=== PATIENT | female | born 1990 | race Caucasian/White ===

== ENCOUNTER → 2016-09-18 | Outpatient (CLI) | payer MEDICAID ==
[~2016-09-18] MED LIST: AMOX-358 PO; ASCO500T20 PO; CATHETER FLUSH 10 ML SYR IV PRN; CEPH-507 PO; DIPH25TA54 PO; DOCU100C37 PO; DOXY1TAB3 PO; ECHINACEA PO; FERR-74 PO; HYDR-3454 PO; HYDR-3729 PO; HYDR-3812 PO; IBUP-1773 PO; IBUP200C PO; IOHEXOL 350 MG/ML 100 ML (OMNIPAQUE 350) VIAL IV ONE; MULT-895 PO; NS 100 ML (IVPB) BAG IV ONE; OMEP40CA36 PO; ONDA8TAB9 PO; OXYC-197 PO; PENT100C5 PO; PHEN-639 PO; PNV1TABL9 PO; [UNRECOGNIZED DRUG - CODE] PO; omeprazole
--- OUTSIDE RECORDS SUMMARY | 2016-09-18 18:23 | XMS REPORT ---
Author Author ALLYN MCDANIELS Organization [employer] Address Unknown Phone Unavailable Care Team Providers Care Server Software Engineer Name Role Phone ALLYN MCDANIELS CP Unavailable Allergies No Known Allergies Problems Problem Type Condition Code Onset Dates Condition Status Problem General counseling for initiation of other contraceptive measures V25.02 Active Problem Screening for malignant neoplasm of the cervix V76.2 Active Problem Infectious mononucleosis 075 Active Problem Contact dermatitis and other eczema, due to unspecified cause 692.9 Active Problem Unspecified viral infection, in conditions classified elsewhere and of unspecified site 079.99 Active Problem Psychosexual dysfunction, unspecified 302.70 Active Problem Other diseases of nasal cavity and sinuses 478.19 Active Problem Acute suppurative otitis media without spontaneous rupture of eardrum 382.00 Active Problem Vulvodynia, 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
--- NOTE | 2016-09-18 19:50 | Diagnostic Imaging Report ---
PROCEDURE: CT abdomen and pelvis with contrast. TECHNIQUE: Multiple contiguous axial images were obtained through the abdomen and pelvis after administration of intravenous contrast. INDICATION: 26-year-old female presents with right-sided back pain, right anterior abdominal pain for 1 day, diarrhea, history of kidney stones. COMPARISON: 08/17/15 FINDINGS: Lung bases are clear. Cardiac contour is normal. Liver shows uniform attenuation. There is no intraparenchymal mass or ductal dilatation. Gallbladder appears to be surgically absent. Spleen and GE junction are normal. The stomach and duodenal sweep are unremarkable. Pancreas shows sharp margins. Adrenals are normal. Kidneys appear normal in size, position and contour with symmetrical perfusion and excretion of contrast. Both ureters are seen through their course. The underfilled bladder is grossly normal. The nonopacified loops of small bowel are grossly normal. There are, however, prominent mesenteric nodes extending to the mesenteric root. Appendix is normal. Large bowel contains fecal material and gas. The descending colon is mostly decompressed. There is a right ovarian cyst seen. Visualized vasculature shows normal caliber of the aorta, iliac and femoral arteries. There is normal origin of the visceral arteries. There is no inguinal adenopathy. Bone windows show no gross abnormalities. IMPRESSION: Mesenteric lymphadenopathy, etiology of which is unclear. This may represent an infectious process; however, a neoplastic process cannot be completely excluded. Short-term followup with clinical correlation is recommended. Additional nonemergent findings as described above. Dictated by: Dictated on workstation # [id number]
== END ==
LOC: RAD 18:18
PROVIDERS: ATTEND Nurse Practitioner Family
DX: R59.0 Localized enlarged lymph nodes (principal); R10.84 Generalized abdominal pain
CPT/HCPCS: 74177

== ENCOUNTER 2016-12-24 12:32 | Outpatient (CLI) | payer MEDICAID ==
[~2016-12-24] VITALS: Ht 156.2 cm; Wt 90.7 kg
[2016-12-24 12:30] VITALS: BP 113/58
[~2016-12-24 12:32] MED LIST changes: -CATHETER FLUSH 10 ML SYR IV PRN; -IOHEXOL 350 MG/ML 100 ML (OMNIPAQUE 350) VIAL IV ONE; -NS 100 ML (IVPB) BAG IV ONE
[2016-12-24] MEDS ORDERED: PROMETHAZINE INJ 25 MG/ML (PHENERGAN) AMP IVP NR (12:45)
[2016-12-24] MEDS ORDERED: NS IV 1000 ML 1,000 ML IV ONE (12:45)
[2016-12-24] MEDS ORDERED: CATHETER FLUSH 10 ML SYR IV PRN (13:00)
[2016-12-24 13:46] LABS: ALANINE AMINOTRANSFERASE 21 U/L (0-55); ALBUMIN 4.3 G/DL (3.2-4.5); ANION GAP 11 MMOL/L (5-14); ASPARTATE AMINO TRANSFERASE 16 U/L (5-34); BILIRUBIN,TOTAL 0.4 MG/DL (0.1-1.0); BLOOD UREA NITROGEN 7 MG/DL (7-18); BUN/CREATININE RATIO 11; CALCIUM 9.2 MG/DL (8.5-10.1); CARBON DIOXIDE 19 MMOL/L (21-32); CHLORIDE 108 MMOL/L (98-107); CREATININE SERUM 0.64 MG/DL (0.60-1.30); GFR ESTIMATED > 60; GLUCOSE 83 MG/DL (70-105); POTASSIUM 3.6 MMOL/L (3.6-5.0); SODIUM 138 MMOL/L (135-145); TOTAL PROTEIN 7.6 G/DL (6.4-8.2)
[2016-12-24] MEDS ORDERED: DOXY1TAB3 PO (15:07)
[2016-12-24] MEDS ORDERED: PROC10TA PO (15:09)
[2016-12-24] MEDS ORDERED: CALC500T7 PO (15:10)
[2016-12-24] MEDS ORDERED: PROCHLORPERAZINE 10 MG/2ML INJ (COMPAZINE) IV NR (15:15)
[2016-12-24] MEDS ORDERED: D5 LR IV SOLUTION 1,000 ML IV ONE (15:15)
--- NOTE | 2016-12-25 13:03 | Physician Query-Final Dx ---
TY NOE 12/25/16 1303: Clinic Account Progress/Dx Physician Query: Please give diagnosis Date of Service Dec 24, 2016 at 12:32 JORGE LARSON DO 12/26/16 1449: Clinic Account Progress/Dx DIAGNOSIS: Diagnosis Dr. Napoles cared for this patient TY NOE Dec 25, 2016 13:03 JORGE LARSON DO Dec 26, 2016 14:49
--- NOTE | 2016-12-29 13:59 | Physician Query-Final Dx ---
TY NOE 12/29/16 1359: Clinic Account Progress/Dx Physician Query: Please give diagnosis Date of Service Dec 24, 2016 at 12:32 JEREMY GUTIÉRREZ MD 12/29/16 1421: Clinic Account Progress/Dx DIAGNOSIS: Diagnosis Nausea and vomiting in TY NOE Dec 29, 2016 13:59 JEREMY GUTIÉRREZ MD Dec 29, 2016 14:21
== END 2016-12-24 18:30 | disposition home or self-care (01) ==
LOC: WSo 12:32 → LDRP 12:33 → WSo 18:30
PROVIDERS: ATTEND Obstetrics & Gynecology
DX: O21.9 Vomiting of pregnancy, unspecified (principal); Z3A.08 8 weeks gestation of pregnancy
CPT/HCPCS: 36415; 80053; 99212

== ENCOUNTER → 2017-04-02 | Outpatient (CLI) | payer MEDICAID ==
[~2017-04-02] MED LIST changes: +CALC500T7 PO; +PROC10TA PO
--- NOTE | 2017-04-02 13:42 | Diagnostic Imaging Report ---
INDICATION: survey. TECHNIQUE: Multiple real-time grayscale images were obtained over the gravid uterus. COMPARISON: There are no prior studies available for comparison. FINDINGS: There is a single live fetus in cephalic presentation. heart motion was noted and a rate of 142 BPM was recorded. There were no abnormalities identified. However the four-chamber heart view and the spine were not optimally visualized. I would recommend that a short-term (4-6 week) followup exam be performed for further evaluation. The growth parameters are fairly uniform. The placenta is anterior and there is no previa. The amniotic fluid volume is within normal limits. The cervix was not well visualized and consequently the length of the cervix was not obtained. IMPRESSION: 1. There is single live fetus at approximately 22 weeks 5 days gestation +/-2 weeks. The EDC is August 01, 2017. 2. There were no abnormalities identified but the four-chamber heart view and the spine were not optimally imaged. Recommendations as above. 3. The growth parameters are fairly uniform. Biometrical measurements are as follows: Biparietal 5.5 cm, age 23 weeks 0 days. Head circumference 20.41 cm, age 22 weeks 4 days. Abdominal circumference 19.11 cm, age 23 weeks 6 days. Femur length 3.58 cm, age 21 weeks 3 days. Sonographic estimate age: 22 weeks 5 days. Sonographic estimated date of delivery: 08/01/2017. Estimated Weight: 529 gm (+/- 77 gm). LMP percentile: 44%. heart rate: 142 beats per minute. number: 1 of 1. Dictated by: Dictated on workstation # [id number]
== END ==
LOC: RAD 11:33
PROVIDERS: ATTEND Obstetrics & Gynecology
DX: Z36 Encounter for antenatal screening of mother (principal); Z3A.22 22 weeks gestation of pregnancy
CPT/HCPCS: 76805

== ENCOUNTER 2017-04-14 17:06 | Outpatient (CLI) | payer MEDICAID ==
[~2017-04-14] VITALS: Ht 156.2 cm; Wt 95.7 kg
[2017-04-14 17:20] VITALS: BP 116/62
[2017-04-14 17:29] LABS: BILIRUBIN,URINE NEGATIVE (NEGATIVE); KETONES,URINE NEGATIVE (NEGATIVE); LEUKOCYTE ESTERASE ,URINE NEGATIVE (NEGATIVE); NITRITE,URINE NEGATIVE (NEGATIVE); PH,URINE 6.5 (5-9); PROTEIN,URINE NEGATIVE (NEGATIVE); UROBILINOGEN,URINE NORMAL (NORMAL)
[2017-04-14 17:36] LABS: WBC,URINE 0-2 /HPF
[2017-04-14 18:00] VITALS: BP 107/58
[2017-04-14 18:43] LABS: BASOPHILS % (AUTO) 0 % (0-10); EOSINOPHILS # (AUTO) 0.1 10^3/uL (0.0-0.3); EOSINOPHILS % (AUTO) 1 % (0-10); LYMPHOCYTES # (AUTO) 1.5 X 10^3 (1.0-4.0); LYMPHOCYTES % (AUTO) 19 % (12-44); MEAN CORPUSCULAR HEMOGLOBIN 30 PG (25-34); MEAN CORPUSCULAR HGB CONC 34 G/DL (32-36); MEAN CORPUSCULAR VOLUME 90 FL (80-99); MEAN PLATELET VOLUME 10.9 FL (7.4-10.4); MONOCYTES # (AUTO) 0.6 X 10^3 (0.0-1.0); MONOCYTES % (AUTO) 7 % (0-12); NEUTROPHILS # (AUTO) 5.6 X 10^3 (1.8-7.8); NEUTROPHILS % (AUTO) 73 % (42-75); PLATELET COUNT 176 10^3/uL (130-400); RED BLOOD COUNT 3.85 10^6/uL (4.35-5.85); RED CELL DISTRIBUTION WIDTH 13.8 % (10.0-14.5); WHITE BLOOD COUNT 7.7 10^3/uL (4.3-11.0)
[2017-04-14 19:04] LABS: ALANINE AMINOTRANSFERASE 10 U/L (0-55); ALBUMIN 3.3 GM/DL (3.2-4.5); ANION GAP 11 MMOL/L (5-14); ASPARTATE AMINO TRANSFERASE 11 U/L (5-34); BILIRUBIN,TOTAL 0.3 MG/DL (0.1-1.0); BLOOD UREA NITROGEN 5 MG/DL (7-18); BUN/CREATININE RATIO 9; CALCIUM 8.4 MG/DL (8.5-10.1); CARBON DIOXIDE 16 MMOL/L (21-32); CHLORIDE 109 MMOL/L (98-107); CREATININE SERUM 0.54 MG/DL (0.60-1.30); GFR ESTIMATED > 60; GLUCOSE 85 MG/DL (70-105); POTASSIUM 3.5 MMOL/L (3.6-5.0); SODIUM 136 MMOL/L (135-145); TOTAL PROTEIN 6.5 GM/DL (6.4-8.2)
[2017-04-14] MEDS ORDERED: NS IV 1000 ML 1,000 ML IV ONE (19:15)
[2017-04-14] MEDS ORDERED: LOPERAMIDE 2 MG (IMODIUM) CAP PO PRN (19:15)
[2017-04-14 19:40] VITALS: BP 114/55
[2017-04-14 22:40] VITALS: BP 114/76
--- NOTE | 2017-04-15 15:05 | Physician Query-Final Dx ---
ADAM FERRARO 04/15/17 3:05pm: Clinic Account Progress/Dx Physician Query: Please give diagnosis Date of Service Apr 14, 2017 at 17:06 JORGE LARSON DO 05/01/17 6:25pm: Clinic Account Progress/Dx DIAGNOSIS: Diagnosis Nausea, diarrhea in second trimester ADAM FERRARO Apr 15, 2017 3:05 pm JORGE LARSON DO May 01, 2017 6:25 pm
== END 2017-04-14 22:45 | disposition home or self-care (01) ==
LOC: LDRP 17:06 → WSo 17:06
PROVIDERS: ATTEND Obstetrics & Gynecology
DX: O99.89 Other specified diseases and conditions complicating pregnancy, childbirth and the puerperium (principal); R11.0 Nausea; R19.7 Diarrhea, unspecified; Z3A.24 24 weeks gestation of pregnancy
CPT/HCPCS: 36415; 80053; 81000; 85025; 86850; 86900; 86901; 87088; 96360; 96361; 99213

== ENCOUNTER 2017-05-26 22:50 | Outpatient (CLI) | payer MEDICAID ==
[~2017-05-26] VITALS: Ht 156.2 cm; Wt 98.0 kg
[2017-05-26 23:28] LABS: BILIRUBIN,URINE NEGATIVE (NEGATIVE); KETONES,URINE NEGATIVE (NEGATIVE); LEUKOCYTE ESTERASE ,URINE NEGATIVE (NEGATIVE); NITRITE,URINE NEGATIVE (NEGATIVE); PH,URINE 6.5 (5-9); PROTEIN,URINE NEGATIVE (NEGATIVE); UROBILINOGEN,URINE NORMAL (NORMAL)
[2017-05-26 23:42] VITALS: BP 123/56
--- NOTE | 2017-05-27 07:25 | Physician Query-Final Dx ---
ADAM FERRARO 05/27/17 0725: Clinic Account Progress/Dx Physician Query: Please give diagnosis Date of Service May 26, 2017 at 22:50 JORGE LARSON DO 06/17/17 1228: Clinic Account Progress/Dx DIAGNOSIS: Diagnosis contractions third trimester 30 weeks ADAM FERRARO May 27, 2017 07:25 JORGE LARSON DO Jun 17, 2017 12:28
== END 2017-05-27 00:05 | disposition home or self-care (01) ==
LOC: WSo 22:50 → LDRP 22:50 → WSo 05-27 00:05
PROVIDERS: ATTEND Obstetrics & Gynecology
DX: O47.03 False labor before 37 completed weeks of gestation, third trimester (principal); Z3A.30 30 weeks gestation of pregnancy
CPT/HCPCS: 81000; 99213

== ENCOUNTER 2017-07-06 14:55 | Outpatient (CLI) | payer MEDICAID ==
[~2017-07-06] VITALS: Ht 154.9 cm; Wt 98.5 kg
[2017-07-06 14:55] VITALS: BP 135/68
[2017-07-06 15:41] LABS: BILIRUBIN,URINE NEGATIVE (NEGATIVE); KETONES,URINE 4+ (NEGATIVE); LEUKOCYTE ESTERASE ,URINE NEGATIVE (NEGATIVE); NITRITE,URINE NEGATIVE (NEGATIVE); PH,URINE 5 (5-9); PROTEIN,URINE 2+ (NEGATIVE); UROBILINOGEN,URINE NORMAL (NORMAL)
[2017-07-06] MEDS ORDERED: OMEP40CA36 PO (15:41)
[2017-07-06] MEDS ORDERED: PROM25SU44 RC (15:41)
[2017-07-06] MEDS ORDERED: D5 LR IV SOLUTION 1,000 ML IV SCH (16:00)
[2017-07-06] MEDS ORDERED: CATHETER FLUSH 10 ML SYR IV PRN (16:00)
[2017-07-06] MEDS ORDERED: ONDANSETRON 4 MG/2 ML (SDV) Z0FRAN IVP PRN (16:00)
[2017-07-06 16:03] LABS: WBC,URINE RARE /HPF
[2017-07-06 16:04] LABS: SQUAMOUS EPITHELIAL CELL,UR >50 /HPF
[2017-07-06 16:14] LABS: BASOPHILS % (AUTO) 0 % (0-10); EOSINOPHILS % (AUTO) 0 % (0-10); LYMPHOCYTES # (AUTO) 0.9 X 10^3 (1.0-4.0); LYMPHOCYTES % (AUTO) 5 % (12-44); MEAN CORPUSCULAR HEMOGLOBIN 28 PG (25-34); MEAN CORPUSCULAR HGB CONC 34 G/DL (32-36); MEAN CORPUSCULAR VOLUME 84 FL (80-99); MEAN PLATELET VOLUME 10.6 FL (7.4-10.4); MONOCYTES # (AUTO) 0.9 X 10^3 (0.0-1.0); MONOCYTES % (AUTO) 5 % (0-12); NEUTROPHILS # (AUTO) 14.7 X 10^3 (1.8-7.8); NEUTROPHILS % (AUTO) 89 % (42-75); PLATELET COUNT 226 10^3/uL (130-400); RED BLOOD COUNT 4.39 10^6/uL (4.35-5.85); WHITE BLOOD COUNT 16.5 10^3/uL (4.3-11.0)
[2017-07-06] MEDS ORDERED: LOPERAMIDE 2 MG (IMODIUM) CAP PO PRN (16:15)
[2017-07-06 16:34] LABS: ALANINE AMINOTRANSFERASE 14 U/L (0-55); ALBUMIN 3.5 GM/DL (3.2-4.5); ANION GAP 12 MMOL/L (5-14); ASPARTATE AMINO TRANSFERASE 18 U/L (5-34); BILIRUBIN,TOTAL 0.4 MG/DL (0.1-1.0); BLOOD UREA NITROGEN 6 MG/DL (7-18); BUN/CREATININE RATIO 11; CALCIUM 8.6 MG/DL (8.5-10.1); CARBON DIOXIDE 16 MMOL/L (21-32); CHLORIDE 109 MMOL/L (98-107); CREATININE SERUM 0.54 MG/DL (0.60-1.30); GFR ESTIMATED > 60; GLUCOSE 84 MG/DL (70-105); POTASSIUM 3.5 MMOL/L (3.6-5.0); SODIUM 137 MMOL/L (135-145); TOTAL PROTEIN 6.9 GM/DL (6.4-8.2)
[2017-07-06 16:49] LABS: BAND NEUTROPHILS 0 %; BASOPHILS % (MANUAL) 0 %; EOSINOPHILS % (MANUAL) 0 %; LYMPHOCYTES % (MANUAL) 5 %; NEUTROPHILS % (MANUAL) 93 %
[2017-07-06 19:46] VITALS: BP 130/66
--- NOTE | 2017-07-07 13:29 | Physician Query-Final Dx ---
TY NOE 07/07/17 1329: Clinic Account Progress/Dx Physician Query: Please give diagnosis Date of Service Jul 06, 2017 at 14:55 ALLYN BORDEN DO 07/08/17 0940: Clinic Account Progress/Dx DIAGNOSIS: Diagnosis 36 week IUP Acute gastroenteritis TY NOE Jul 07, 2017 13:29 ALLYN BORDEN DO Jul 08, 2017 09:40
== END 2017-07-06 21:05 | disposition home or self-care (01) ==
LOC: WSo 14:55 → LDRP 14:55 → WSo 15:05
PROVIDERS: ATTEND Obstetrics & Gynecology
DX: O99.613 Diseases of the digestive system complicating pregnancy, third trimester (principal); K52.9 Noninfective gastroenteritis and colitis, unspecified; Z3A.36 36 weeks gestation of pregnancy
CPT/HCPCS: 36415; 80053; 81000; 85007; 85027; 96361; 96374; 99213

== ENCOUNTER 2017-07-15 18:55 | Outpatient (CLI) | payer MEDICAID ==
[~2017-07-15] VITALS: Ht 154.9 cm; Wt 102.2 kg
[~2017-07-15 18:55] MED LIST changes: +ACHD5005 PO; -HYDR-3812 PO; +PROM25SU44 RC
[2017-07-15 20:00] VITALS: BP 135/64
[2017-07-15 20:49] LABS: BASOPHILS % (AUTO) 0 % (0-10); EOSINOPHILS # (AUTO) 0.1 10^3/uL (0.0-0.3); EOSINOPHILS % (AUTO) 1 % (0-10); LYMPHOCYTES # (AUTO) 1.9 X 10^3 (1.0-4.0); LYMPHOCYTES % (AUTO) 19 % (12-44); MEAN CORPUSCULAR HEMOGLOBIN 28 PG (25-34); MEAN CORPUSCULAR HGB CONC 33 G/DL (32-36); MEAN CORPUSCULAR VOLUME 85 FL (80-99); MEAN PLATELET VOLUME 10.7 FL (7.4-10.4); MONOCYTES # (AUTO) 0.8 X 10^3 (0.0-1.0); MONOCYTES % (AUTO) 8 % (0-12); NEUTROPHILS # (AUTO) 7.2 X 10^3 (1.8-7.8); NEUTROPHILS % (AUTO) 73 % (42-75); PLATELET COUNT 228 10^3/uL (130-400); RED BLOOD COUNT 4.29 10^6/uL (4.35-5.85); RED CELL DISTRIBUTION WIDTH 15.3 % (10.0-14.5); WHITE BLOOD COUNT 9.9 10^3/uL (4.3-11.0)
[2017-07-15 20:54] LABS: FERN TEST AMNIOTIC FLUID NEGATIVE (NEGATIVE)
[2017-07-15] MEDS ORDERED: D5 LR IV SOLUTION 1,000 ML IV ONE (21:08)
[2017-07-15] MEDS: D5 LR IV SOLUTION 1,000 ML IV SCH ×2 (21:30→22:35)
--- NOTE | 2017-07-16 12:10 | Physician Query-Final Dx ---
TY NOE 07/16/17 1210: Clinic Account Progress/Dx Physician Query: Please give diagnosis Date of Service Jul 15, 2017 at 18:55 ESTHER PAT MD 07/16/17 1723: Clinic Account Progress/Dx DIAGNOSIS: Diagnosis threatened labor TY NOE Jul 16, 2017 12:10 ESTHER PAT MD Jul 16, 2017 17:23
== END 2017-07-15 23:50 | disposition home or self-care (01) ==
LOC: WSo 18:55 → LDRP 18:55 → WSo 23:50
PROVIDERS: ATTEND Obstetrics & Gynecology
DX: O47.1 False labor at or after 37 completed weeks of gestation (principal); Z3A.37 37 weeks gestation of pregnancy
CPT/HCPCS: 36415; 85025; 89060; 96360; 96361; 99214

== ENCOUNTER 2017-07-18 19:23 | Outpatient (CLI) | payer MEDICAID ==
[~2017-07-18] VITALS: Ht 156.2 cm; Wt 101.7 kg
[2017-07-18 19:45] VITALS: BP 127/62
[2017-07-18 20:50] VITALS: BP 120/55
--- NOTE | 2017-07-23 15:29 | Physician Query-Final Dx ---
ADAM FERRARO 07/23/17 1529: Clinic Account Progress/Dx Physician Query: Please give diagnosis Date of Service Jul 18, 2017 at 19:23 ESTHER PAT MD 07/24/17 1217: Clinic Account Progress/Dx DIAGNOSIS: Diagnosis false labor ADAM FERRARO Jul 23, 2017 15:29 ESTHER PAT MD Jul 24, 2017 12:17
--- NOTE | 2017-07-23 15:32 | Physician Query-Final Dx ---
ADAM FERRARO 07/23/17 1532: Clinic Account Progress/Dx Physician Query: Please give diagnosis Date of Service Jul 18, 2017 at 19:23 ESTHER PAT MD 07/24/17 1218: Clinic Account Progress/Dx DIAGNOSIS: Diagnosis false labor ADAM FERRARO Jul 23, 2017 15:32 ESTHER PAT MD Jul 24, 2017 12:18
== END 2017-07-18 21:05 | disposition home or self-care (01) ==
LOC: WSo 19:23 → LDRP 19:25 → WSo 21:05
PROVIDERS: ATTEND Obstetrics & Gynecology
DX: O47.1 False labor at or after 37 completed weeks of gestation (principal); Z3A.38 38 weeks gestation of pregnancy
CPT/HCPCS: 99213

== ENCOUNTER 2017-07-23 21:45 | Outpatient (CLI) | payer MEDICAID ==
[~2017-07-23] VITALS: Ht 156.2 cm; Wt 101.7 kg
[2017-07-23 22:29] VITALS: BP 122/58
--- NOTE | 2017-07-24 07:22 | Physician Query-Final Dx ---
ADAM FERRARO 07/24/17 0722: Clinic Account Progress/Dx Physician Query: Please give diagnosis Date of Service Jul 23, 2017 at 21:45 ALLYN BORDEN DO 07/24/17 0851: Clinic Account Progress/Dx DIAGNOSIS: Diagnosis 37 week IUP Uterine contraction ADAM FERRARO Jul 24, 2017 07:22 ALLYN BORDEN DO Jul 24, 2017 08:51
== END 2017-07-23 23:37 ==
LOC: LDRP 21:45 → WSo 21:45 → LDRP 21:50 → WSo 23:37
PROVIDERS: ATTEND Obstetrics & Gynecology
DX: O47.1 False labor at or after 37 completed weeks of gestation (principal); Z3A.37 37 weeks gestation of pregnancy
CPT/HCPCS: 99213

== ENCOUNTER 2017-07-26 23:45 | Outpatient (CLI) | payer MEDICAID ==
[~2017-07-26] VITALS: Ht 156.2 cm; Wt 102.1 kg
[~2017-07-26 23:45] MED LIST changes: -FERR-74 PO; +FERR325T18 PO
[2017-07-27 00:06] LABS: BILIRUBIN,URINE NEGATIVE (NEGATIVE); CLARITY,URINE CLEAR; COLOR,URINE YELLOW; GLUCOSE, URINE (UA) NEGATIVE (NEGATIVE); KETONES,URINE NEGATIVE (NEGATIVE); LEUKOCYTE ESTERASE ,URINE 1+ (NEGATIVE); NITRITE,URINE NEGATIVE (NEGATIVE); PH,URINE 6.5 (5-9); PROTEIN,URINE NEGATIVE (NEGATIVE); UROBILINOGEN,URINE NORMAL (NORMAL)
[2017-07-27 00:14] LABS: BACTERIA,URINE TRACE /HPF; WBC,URINE RARE /HPF
[2017-07-27 00:30] VITALS: BP 125/58
--- NOTE | 2017-07-27 09:26 | Physician Query-Final Dx ---
ADAM FERRARO 07/27/17 0926: Clinic Account Progress/Dx Physician Query: Please give diagnosis Date of Service Jul 26, 2017 at 23:45 JORGE LARSON DO 07/29/17 1436: Clinic Account Progress/Dx DIAGNOSIS: Diagnosis threatened labor at term GBS + ADAM FERRARO Jul 27, 2017 09:26 JORGE LARSON DO Jul 29, 2017 14:36
== END 2017-07-27 01:25 | disposition home or self-care (01) ==
LOC: LDRP 23:45 → WSo 23:45
PROVIDERS: ATTEND Obstetrics & Gynecology
DX: O47.1 False labor at or after 37 completed weeks of gestation (principal); O98.813 Other maternal infectious and parasitic diseases complicating pregnancy, third trimester; Z3A.39 39 weeks gestation of pregnancy
CPT/HCPCS: 81000; 99213

== ENCOUNTER 2017-07-27 06:27 | Inpatient (IN) | payer MEDICAID ==
[~2017-07-27] VITALS: Ht 156.2 cm; Wt 102.1 kg
[2017-07-27] VITALS (66 sets, daily range): BP systolic 72–145; BP diastolic 50–73
[2017-07-27] MEDS ORDERED: D5 LR IV SOLUTION 1,000 ML IV SCH (06:35)
[2017-07-27] MEDS ORDERED: MINERAL OIL CONCENTRATE 99.9% 15 ML UDC TOP PRN (06:45)
[2017-07-27 07:11] LABS: BILIRUBIN,URINE NEGATIVE (NEGATIVE); CLARITY,URINE CLEAR; COLOR,URINE YELLOW; GLUCOSE, URINE (UA) NEGATIVE (NEGATIVE); KETONES,URINE 3+ (NEGATIVE); LEUKOCYTE ESTERASE ,URINE 1+ (NEGATIVE); NITRITE,URINE NEGATIVE (NEGATIVE); PH,URINE 6 (5-9); PROTEIN,URINE NEGATIVE (NEGATIVE); UROBILINOGEN,URINE NORMAL (NORMAL)
[2017-07-27 07:22] LABS: BACTERIA,URINE NEGATIVE /HPF; RBC,URINE RARE /HPF; WBC,URINE 0-2 /HPF
[2017-07-27] MEDS ORDERED: SUFENTA 0.6MCG/ML BUPIVA 0.125 100 ML ONE ×2 (08:12→08:45)
[2017-07-27] MEDS ORDERED: BUPIVACAINE 0.25% 30 ML (SENSORCAINE) VIAL ONE (08:45)
[2017-07-27] MEDS ORDERED: fentaNYL INJECTION 100 MCG/2 ML AMP ONE (08:45)
[2017-07-27] MEDS ORDERED: LIDOCAINE PF 2% 5 ML (XYLOCAINE) VIAL ONE (08:45)
[2017-07-27 08:49] LABS: HEMOGLOBIN 11.1 G/DL (11.5-16.0); LYMPHOCYTES % (AUTO) 12 % (12-44); MEAN CORPUSCULAR HEMOGLOBIN 27 PG (25-34); MEAN PLATELET VOLUME 9.5 FL (7.4-10.4); NEUTROPHILS % (AUTO) 81 % (42-75); PLATELET COUNT 226 10^3/uL (130-400); RED BLOOD COUNT 4.15 10^6/uL (4.35-5.85); RED CELL DISTRIBUTION WIDTH 15.1 % (10.0-14.5); WHITE BLOOD COUNT 12.6 10^3/uL (4.3-11.0)
[2017-07-27 08:50] LABS: BASOPHILS % (AUTO) 0 % (0-10); EOSINOPHILS % (AUTO) 0 % (0-10); LYMPHOCYTES # (AUTO) 1.5 X 10^3 (1.0-4.0); MONOCYTES # (AUTO) 0.8 X 10^3 (0.0-1.0); MONOCYTES % (AUTO) 7 % (0-12); NEUTROPHILS # (AUTO) 10.3 X 10^3 (1.8-7.8)
[2017-07-27] MEDS ORDERED: ONDANSETRON 4 MG/2 ML (SDV) Z0FRAN ONE (09:52)
[2017-07-27 10:29] LABS: HEMATOCRIT 37 % (35-52); MEAN CORPUSCULAR HGB CONC 30 G/DL (32-36); MEAN CORPUSCULAR VOLUME 89 FL (80-99)
[2017-07-27] MEDS ORDERED: CATHETER FLUSH 10 ML SYR IV SCH ×2 (14:00→22:00)
[2017-07-27] MEDS ORDERED: LACTATED RINGERS 1,000 ML IV ONE (14:11)
[2017-07-27] MEDS ORDERED: ONDANSETRON 4 MG/2 ML (SDV) Z0FRAN IV PRN (14:15)
[2017-07-27] MEDS ORDERED: diphenhydrAMINE 50 MG/ML INJ (BENADRYL) IV PRN (14:15)
[2017-07-27] MEDS ORDERED: EPIDURAL (SUFENTA 0.6MCG/ML BUPIVA 0.125%) 100 ML BAG EPI SCH (14:15)
[2017-07-27] MEDS ORDERED: NALOXONE 0.4 MG/ML 1 ML (NARCAN) VIAL IV PRN (14:15)
[2017-07-27] MEDS ORDERED: CATHETER FLUSH 10 ML SYR IV PRN (14:15)
--- OUTSIDE RECORDS SUMMARY | 2017-07-27 14:37 | XMS REPORT ---
Author Author ALLYN MCDANIELS Organization [employer] Address Unknown Phone Unavailable Care Team Providers Care Chief Engineering Division Name Role Phone ALLYN MCDANIELS CP Unavailable [...] System Code Date SINGLE IMMUNIZATION ADMIN CPT-4 06953 May 02, 2016 FLUARIX QUAD P-FREE 3 AND UP .50 2015 CPT-4 40094 May 02, 2016 Results No Known Results Immunizations Vaccine Administration Date FLUARIX QUAD P-FREE 3 AND UP .50 2015May 02, 2016 Summary Purpose [employer] Submission
--- OUTSIDE RECORDS SUMMARY | 2017-07-27 14:37 | XMS REPORT ---
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 Active 754632809 Problem Screening for malignant neoplasm of the cervix V76.2 Active 136724934 Problem Unspecified contraceptive management V25.9 Active 985824002 Problem General counseling for initiation of other contraceptive measures V25.02 Active 075868619420282 Problem Contact dermatitis and other eczema, due to unspecified cause 692.9 Active 58919551 Problem Enlarged tonsils J35.1 Active 689185236 Problem Infectious mononucleosis 075 Active 256738298 Problem Other diseases of nasal cavity and sinuses 478.19 Active 565251388 Problem Acute suppurative otitis media without spontaneous rupture of eardrum 382.00 Active 64923186 Problem Unspecified viral infection, in conditions classified elsewhere and of unspecified site 079.99 Active 71110334 Problem Psychosexual dysfunction, unspecified 302.70 Active 412094704 ALLERGIES Substance Reaction Event Type Date Status Iodine rash Drug Allergy Aug, Active SOCIAL HISTORY Never Assessed PLAN OF CARE Activity Details Follow Up prn Reason: VITAL SIGNS Height 60.75 in 2016-09-16 Weight 206.6 lbs 2016-09-16 Temperature 98.2 degrees Fahrenheit 2016-09-16 Heart Rate 88 bpm 2016-09-16 Respiratory Rate 20 2016-09-16 BMI 39.35 kg/m2 2016-09-16 Blood pressure systolic 134 mmHg 2016-09-16 Blood pressure diastolic 84 mmHg 2016-09-16 MEDICATIONS No Known Medications RESULTS Name Result Date Reference Range INFLUENZA A & B (IN HOUSE) 2016-09-16 INFLUENZA A negative INFLUENZA B negative Control + Lot # [id number] Exp date 2017 PROCEDURES Procedure Date Ordered Result Body Site INFLUENZA ASSAY W/OPTIC Sep 16, 2016 IMMUNIZATIONS No Known Immunizations MEDICAL (GENERAL) HISTORY Type Description Date Medical History due Aug 01, 2017 Surgical History abcess on buttocks due to childbirth 09/04 Surgical History EGD--stones in duct 10/02 Surgical History cholecystectomy 10/02
--- OUTSIDE RECORDS SUMMARY | 2017-07-27 14:37 | XMS REPORT ---
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.70 Active 076511862 Problem Screening for malignant neoplasm of the cervix V76.2 Active 404617920 Problem Unspecified contraceptive management V25.9 Active 547416116 Problem General counseling for initiation of other contraceptive measures V25.02 Active 299916080078582 Problem Contact dermatitis and other eczema, due to unspecified cause 692.9 Active 85502630 Problem Enlarged tonsils J35.1 Active 736983908 Problem Infectious mononucleosis 075 Active 210112085 Problem Other diseases of nasal cavity and sinuses 478.19 Active 478566915 Problem Acute suppurative otitis media without spontaneous rupture of eardrum 382.00 Active 87662713 Problem Unspecified viral infection, in conditions classified elsewhere and of unspecified site 079.99 Active 66710789 Problem Psychosexual dysfunction, unspecified 302.70 Active 766645467 ALLERGIES Substance Reaction Event Type Date Status Iodine rash Drug Allergy Jun, Active SOCIAL HISTORY No smoking Hx information available PLAN OF CARE Activity Details Follow Up prn Reason: VITAL SIGNS Height 60.75 in 2016-07-03 Weight 211 lbs 2016-07-03 Temperature 97.8 degrees Fahrenheit 2016-07-03 BMI 40.19 kg/m2 2016-07-03 MEDICATIONS No Known Medications RESULTS Name Result Date Reference Range STREP A (IN HOUSE) 2016-07-03 STREP A negative Control + Lot # [id number] Exp date 01/04/18 PROCEDURES Procedure Date Ordered Related Diagnosis Body Site Office Visit, Est Pt., Level 3 Jul 03, 2016 STREP A ASSAY W/OPTIC Jul 03, 2016 IMMUNIZATIONS No Known Immunizations
--- OUTSIDE RECORDS SUMMARY | 2017-07-27 14:37 | XMS REPORT ---
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 Active 767693470 Problem Screening for malignant neoplasm of the cervix V76.2 Active 186412900 Problem Unspecified contraceptive management V25.9 Active 034893288 Problem General counseling for initiation of other contraceptive measures V25.02 Active 933038492813123 Problem Contact dermatitis and other eczema, due to unspecified cause 692.9 Active 00391207 Problem Enlarged tonsils J35.1 Active 981466377 Problem Infectious mononucleosis 075 Active 868634408 Problem Other diseases of nasal cavity and sinuses 478.19 Active 348944549 Problem Acute suppurative otitis media without spontaneous rupture of eardrum 382.00 Active 95028749 Problem Unspecified viral infection, in conditions classified elsewhere and of unspecified site 079.99 Active 68692108 Problem Psychosexual dysfunction, unspecified 302.70 Active 147894047 ALLERGIES Substance Reaction Event Type Date Status Iodine rash Drug Allergy Sep, Active SOCIAL HISTORY Never Assessed PLAN OF CARE Activity Details Follow Up prn Reason: VITAL SIGNS Height 60.75 in 2016-09-18 Weight 204.6 lbs 2016-09-18 Temperature 97.6 degrees Fahrenheit 2016-09-18 Heart Rate 78 bpm 2016-09-18 Respiratory Rate 22 2016-09-18 BMI 38.97 kg/m2 2016-09-18 Blood pressure systolic 130 mmHg 2016-09-18 Blood pressure diastolic 80 mmHg 2016-09-18 MEDICATIONS No Known Medications RESULTS Name Result Date Reference Range UA LONG DIP (IN HOUSE) Lot # [id number] Exp date 2017-08-19 Clarity clear Color dark yellow Odor none GLU negativeq MIGUEL negative KET negative SG >=1.030 BLO negative pH 6.0 Protein negative URO 0.2 NIT negative JUAN PABLO negative Lot # [id number] Exp date 2017-08 CT Scan : Abdomen & Pelvis w/ Contrast 2016-09-18 Xray : KUB (IN HOUSE) 2016-09-18 PROCEDURES Procedure Date Ordered Result Body Site URINALYSIS, AUTO, W/O SCOPE September 18, 2016 X-RAY EXAM OF ABDOMEN September 18, 2016 IMMUNIZATIONS No Known Immunizations MEDICAL (GENERAL) HISTORY Type Description Date Medical History due Aug 01, 2017 Surgical History abcess on buttocks due to childbirth 09/04 Surgical History EGD--stones in duct 10/02 Surgical History cholecystectomy 10/02
--- OUTSIDE RECORDS SUMMARY | 2017-07-27 14:37 | XMS REPORT ---
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.70 Active 537375131 Problem Screening for malignant neoplasm of the cervix V76.2 Active 227800239 Problem Unspecified contraceptive management V25.9 Active 632571688 Problem General counseling for initiation of other contraceptive measures V25.02 Active 527000755890513 Problem Contact dermatitis and other eczema, due to unspecified cause 692.9 Active 59827461 Problem Enlarged tonsils J35.1 Active 568465295 Problem Infectious mononucleosis 075 Active 828347431 Problem Other diseases of nasal cavity and sinuses 478.19 Active 063910867 Problem Acute suppurative otitis media without spontaneous rupture of eardrum 382.00 Active 84732032 Problem Unspecified viral infection, in conditions classified elsewhere and of unspecified site 079.99 Active 73149934 Problem Psychosexual dysfunction, unspecified 302.70 Active 297862291 ALLERGIES No Information SOCIAL HISTORY Never Assessed PLAN OF CARE VITAL SIGNS MEDICATIONS No Known Medications RESULTS No Results PROCEDURES No Known procedures IMMUNIZATIONS No Known Immunizations MEDICAL (GENERAL) HISTORY Type Description Date Medical History due Aug 01, 2017 Surgical History abcess on buttocks due to childbirth 09/04 Surgical History EGD--stones in duct 10/02 Surgical History cholecystectomy 10/02
--- OUTSIDE RECORDS SUMMARY | 2017-07-27 14:38 | XMS REPORT ---
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.70 Active 449240733 Problem Screening for malignant neoplasm of the cervix V76.2 Active 831745257 Problem Unspecified contraceptive management V25.9 Active 323924808 Problem General counseling for initiation of other contraceptive measures V25.02 Active 230350809537300 Problem Contact dermatitis and other eczema, due to unspecified cause 692.9 Active 35688510 Problem Enlarged tonsils J35.1 Active 130239431 Problem Infectious mononucleosis 075 Active 342744293 Problem Other diseases of nasal cavity and sinuses 478.19 Active 456966676 Problem Acute suppurative otitis media without spontaneous rupture of eardrum 382.00 Active 75921023 Problem Unspecified viral infection, in conditions classified elsewhere and of unspecified site 079.99 Active 79227240 Problem Psychosexual dysfunction, unspecified 302.70 Active 827913313 ALLERGIES Substance Reaction Event Type Date Status Iodine rash Drug Allergy Aug, Active SOCIAL HISTORY Never Assessed PLAN OF CARE Activity Details Follow Up 6 Months Reason:FATEMEH VITAL SIGNS Height 60.75 in 2016-09-15 Blood pressure systolic 153 mmHg 2016-09-15 Blood pressure diastolic 83 mmHg 2016-09-15 MEDICATIONS No Known Medications RESULTS No Results PROCEDURES Procedure Date Ordered Result Body Site Dental no charge Sep 15, 2016 IMMUNIZATIONS No Known Immunizations MEDICAL (GENERAL) HISTORY Type Description Date Medical History due Aug 01, 2017 Surgical History abcess on buttocks due to childbirth 09/04 Surgical History EGD--stones in duct 10/02 Surgical History cholecystectomy 10/02
--- OUTSIDE RECORDS SUMMARY | 2017-07-27 14:38 | XMS REPORT ---
Author Author DAMARIS SERNA [facility] Address [address] [place] [address] Care Team Providers Care Brush Operator Name Role Phone DAMARIS SERNA Unavailable PROBLEMS Type Condition ICD9-CM Code ZPH68-JE Code Onset Dates Condition Status SNOMED Code Problem Screening for malignant neoplasm of the cervix V76.2 Active 683201995 Problem Other diseases of nasal cavity and sinuses 478.19 Active 576082720 Problem Acute suppurative otitis media without spontaneous rupture of eardrum 382.00 Active 99035337 Problem Unspecified local infection of skin and subcutaneous tissue 686.9 Active 486907248 Problem Unspecified contraceptive management V25.9 Active 309908572 Problem General counseling for initiation of other contraceptive measures V25.02 Active 099265039948001 Problem Infectious mononucleosis 075 Active 388623048 Problem Enlarged tonsils J35.1 Active 225321371 Problem Psychosexual dysfunction, unspecified 302.70 Active 245531595 Problem Vulvodynia, 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.70 Active 993866153 Problem Acute sinusitis, unspecified 461.9 Active 90083091 Problem Contact dermatitis and other eczema, due to unspecified cause 692.9 Active 52933993 Problem Unspecified viral infection, in conditions classified elsewhere and of unspecified site 079.99 Active 53954865 ALLERGIES Substance Reaction Event Type Date Status Iodine rash Drug Allergy Jun, Active SOCIAL HISTORY No smoking Hx information available PLAN OF CARE Activity Details Follow Up prn Reason: VITAL SIGNS Height 60.75 in 2016-07-11 Weight 210.9 lbs 2016-07-11 Temperature 98.4 degrees Fahrenheit 2016-07-11 Heart Rate 70 bpm 2016-07-11 Respiratory Rate 20 2016-07-11 BMI 40.17 kg/m2 2016-07-11 Blood pressure systolic 124 mmHg 2016-07-11 Blood pressure diastolic 76 mmHg 2016-07-11 MEDICATIONS Medication Instructions Dosage Frequency Start Date End Date Duration Status Amoxicillin 500 MG Orally 3 times a day 1 capsule 8h Jun, Jun, 07 days Active Fluticasone Propionate 50 MCG/ACT Nasally Once a day 2 spray in each nostril 24h Jun, Active RESULTS No Results PROCEDURES Procedure Date Ordered Related Diagnosis Body Site Office Visit, Est Pt., Level 2 Jul 11, 2016 IMMUNIZATIONS No Known Immunizations
--- OUTSIDE RECORDS SUMMARY | 2017-07-27 14:38 | XMS REPORT ---
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 978712450 Problem Screening for malignant neoplasm of the cervix V76.2 Active 691458005 Problem Unspecified contraceptive management V25.9 Active 436263337 Problem General counseling for initiation of other contraceptive measures V25.02 Active 990078210434359 Problem Contact dermatitis and other eczema, due to unspecified cause 692.9 Active 43770429 Problem Enlarged tonsils J35.1 Active 273563816 Problem Infectious mononucleosis 075 Active 358796526 Problem Other diseases of nasal cavity and sinuses 478.19 Active 688497685 Problem Acute suppurative otitis media without spontaneous rupture of eardrum 382.00 Active 06228294 Problem Unspecified viral infection, in conditions classified elsewhere and of unspecified site 079.99 Active 93923905 Problem Psychosexual dysfunction, unspecified 302.70 Active 665204254 ALLERGIES Substance Reaction Event Type Date Status Iodine rash Drug Allergy Jul, Active SOCIAL HISTORY No smoking Hx information available PLAN OF CARE Activity Details Follow Up prn Reason:MOLLY VITAL SIGNS MEDICATIONS No Known Medications RESULTS No Results PROCEDURES Procedure Date Ordered Related Diagnosis Body Site INTRAORL-PERIAPICAL 1 FILM 26719 Aug 04, 2016 INTRAORL-PERIAPICAL EA ADD FILM Aug 04, 2016 TOPICAL FLUORIDE VARNISH Aug 04, 2016 INTRAORL-PERIAPICAL EA ADD FILM Aug 04, 2016 INTRAORL-PERIAPICAL EA ADD FILM Aug 04, 2016 PROPHYLAXIS - ADULT Aug 04, 2016 BITEWINGS - FOUR FILMS Aug 04, 2016 IMMUNIZATIONS No Known Immunizations
--- OUTSIDE RECORDS SUMMARY | 2017-07-27 14:38 | XMS REPORT ---
Author Author KEERTHI SANTIAGO Organization [employer] Address Unknown Phone Unavailable Care Team Providers Care Grease Maker Name Role Phone KEERTHI SANTIAGO CP Unavailable Allergies, Adverse Reactions, Alerts Substance Reaction Event Type Iodine rash Drug Allergy Problems Problem Type Condition Code Onset Dates [...] Problem Acute sinusitis, unspecified 461.9 Active Assessment Urinary frequency R35.0 Active Assessment Allergic rhinitis, unspecified allergic rhinitis type J30.9 Active Problem Unspecified local infection of skin and subcutaneous tissue 686.9 Active Problem Unspecified contraceptive management V25.9 Active Medications No Known Medications Procedures Procedure Coding System Code Date Office Visit, Est Pt., Level 3 CPT-4 79653 February 15, 2016 URINALYSIS, AUTO, W/O SCOPE CPT-4 51486 February 15, 2016 Vital Signs Date/Time: February 15, 2016 Cardiac Monitoring Heart Rate 68 bpm Weight 209.0 lbs Height 60.75 in BMI 39.81 Index Blood Pressure Diastolic 84 mmHg Blood Pressure Systolic 126 mmHg Results No Known Results Summary Purpose [employer] Submission
--- OUTSIDE RECORDS SUMMARY | 2017-07-27 14:40 | XMS REPORT | Continuity of Care Document ---
Author Author [facility] Address Unknown Phone Unavailable Allergies Active Description Code Type Severity Reaction Onset Reported/Identified Relationship to Patient Clinical Status Yes No Known Drug Allergies [id number] Drug Allergy Unknown N/A 06/07/2014 Yes iodine [id number] Drug Allergy Moderate RASH 09/24/2015 Medications There is no data. Problems Date Dx Coded Attending Type Code Diagnosis Diagnosed By 09/03/2010 599.0 URINARY TRACT INFECTION 09/03/2010 599.0 URINARY TRACT INFECTION 09/03/2010 599.0 URINARY TRACT INFECTION 09/03/2010 599.0 URINARY TRACT INFECTION 09/03/2010 599.0 URINARY TRACT INFECTION 09/03/2010 GIRMA PACHECO DO 599.0 URINARY TRACT INFECTION 09/03/2010 GIRMA PACHECO DO 599.0 URINARY TRACT INFECTION 09/03/2010 LEATHA MULLEN APRN 599.0 URINARY TRACT INFECTION 11/18/2010 388.70 EAR ACHE 11/18/2010 487.1 INFLUENZA WITH OTHER RESPIRATORY MANIFESTATIONS 11/18/2010 780.60 FEVER, UNSPECIFIED 11/18/2010 780.79 MALAISE AND FATIGUE 11/18/2010 388.70 EAR ACHE 11/18/2010 487.1 INFLUENZA WITH OTHER RESPIRATORY MANIFESTATIONS 11/18/2010 780.60 FEVER, UNSPECIFIED 11/18/2010 780.79 MALAISE AND FATIGUE 11/18/2010 388.70 EAR ACHE 11/18/2010 487.1 INFLUENZA WITH OTHER RESPIRATORY MANIFESTATIONS 11/18/2010 780.60 FEVER, UNSPECIFIED 11/18/2010 780.79 MALAISE AND FATIGUE 11/18/2010 388.70 EAR ACHE 11/18/2010 487.1 INFLUENZA WITH OTHER RESPIRATORY MANIFESTATIONS 11/18/2010 780.60 FEVER, UNSPECIFIED 11/18/2010 780.79 MALAISE AND FATIGUE 11/18/2010 388.70 EAR ACHE 11/18/2010 487.1 INFLUENZA WITH OTHER RESPIRATORY MANIFESTATIONS 11/18/2010 780.60 FEVER, UNSPECIFIED 11/18/2010 780.79 MALAISE AND FATIGUE 11/18/2010 PACHECO DO, GIRMA K 388.70 EAR ACHE 11/18/2010 PACHECO DO, GIRMA K 487.1 INFLUENZA WITH OTHER RESPIRATORY MANIFESTATIONS 11/18/2010 PACHECO DO, GIRMA K 780.60 FEVER, UNSPECIFIED 11/18/2010 PACHECO DO, GIRMA K 780.79 MALAISE AND FATIGUE 11/18/2010 PACHECO DO, GIRMA K 388.70 EAR ACHE 11/18/2010 PACHECO DO, GIRMA K 487.1 INFLUENZA WITH OTHER RESPIRATORY MANIFESTATIONS 11/18/2010 PACHECO DO, GIRMA K 780.60 FEVER, UNSPECIFIED 11/18/2010 PACHECO DO, GIRMA K 780.79 MALAISE AND FATIGUE 11/18/2010 LEATHA MULLEN APRN E 388.70 EAR ACHE 11/18/2010 PAZ TRAINING AND DEVELOPMENT MANAGERLEATHA Rojas E 487.1 INFLUENZA WITH OTHER RESPIRATORY MANIFESTATIONS 11/18/2010 PHILIP MULLEN APRNE E 780.60 FEVER, UNSPECIFIED 11/18/2010 PAZ TRAINING AND DEVELOPMENT MANAGERNOA RojasSIE E 780.79 MALAISE AND FATIGUE 01/23/2011 528.00 STOMATITIS AND MUCOSITIS UNSPECIFIED 01/23/2011 724.2 LUMBAGO 01/23/2011 780.99 OTHER GENERAL SYMPTOMS 01/23/2011 528.00 STOMATITIS AND MUCOSITIS UNSPECIFIED 01/23/2011 724.2 LUMBAGO 01/23/2011 780.99 OTHER GENERAL SYMPTOMS 01/23/2011 528.00 STOMATITIS AND MUCOSITIS UNSPECIFIED 01/23/2011 724.2 LUMBAGO 01/23/2011 780.99 OTHER GENERAL SYMPTOMS 01/23/2011 528.00 STOMATITIS AND MUCOSITIS UNSPECIFIED 01/23/2011 724.2 LUMBAGO 01/23/2011 780.99 OTHER GENERAL SYMPTOMS 01/23/2011 528.00 STOMATITIS AND MUCOSITIS UNSPECIFIED 01/23/2011 724.2 LUMBAGO 01/23/2011 780.99 OTHER GENERAL SYMPTOMS 01/23/2011 PACHECO DO GIRMA K 528.00 STOMATITIS AND MUCOSITIS UNSPECIFIED 01/23/2011 PACHECO DO GIRMA K 724.2 LUMBAGO 01/23/2011 PACHECO DO, GIRMA K 780.99 OTHER GENERAL SYMPTOMS 01/23/2011 PACHECO DONOAA K 528.00 STOMATITIS AND MUCOSITIS UNSPECIFIED 01/23/2011 PACHECO DONOAA K 724.2 LUMBAGO 01/23/2011 PACHECO DO GIRMA K 780.99 OTHER GENERAL SYMPTOMS 01/23/2011 LEATHA MULLEN APRN E 528.00 STOMATITIS AND MUCOSITIS UNSPECIFIED 01/23/2011 KEISHALLEATHA COLVIN APRN E 724.2 LUMBAGO 01/23/2011 HELLWIG TRAINING AND DEVELOPMENT MANAGERPHILIP RojasE E 780.99 OTHER GENERAL SYMPTOMS 04/01/2011 V74.1 TB SCREENING 04/01/2011 V74.1 TB SCREENING 04/01/2011 V74.1 TB SCREENING 04/01/2011 V74.1 TB SCREENING 04/01/2011 V74.1 TB SCREENING 04/01/2011 GIRMA PACHECO DO K V74.1 TB SCREENING 04/01/2011 GIRMA PACHECO DO K V74.1 TB SCREENING 04/01/2011 KEISHALLEATHA COLVIN APRN E V74.1 TB SCREENING 07/31/2011 382.00 OTITIS MEDIA ACUTE SUPPURATIVE 07/31/2011 461.9 SINUSITIS ACUTE 07/31/2011 478.19 OTHER DISEASES OF NASAL CAVITY AND SINUSES 07/31/2011 382.00 OTITIS MEDIA ACUTE SUPPURATIVE 07/31/2011 461.9 SINUSITIS ACUTE 07/31/2011 478.19 OTHER DISEASES OF NASAL CAVITY AND SINUSES 07/31/2011 382.00 OTITIS MEDIA ACUTE SUPPURATIVE 07/31/2011 461.9 SINUSITIS ACUTE 07/31/2011 478.19 OTHER DISEASES OF NASAL CAVITY AND SINUSES 07/31/2011 382.00 OTITIS MEDIA ACUTE SUPPURATIVE 07/31/2011 461.9 SINUSITIS ACUTE 07/31/2011 478.19 OTHER DISEASES OF NASAL CAVITY AND SINUSES 07/31/2011 382.00 OTITIS MEDIA ACUTE SUPPURATIVE 07/31/2011 461.9 SINUSITIS ACUTE 07/31/2011 478.19 OTHER DISEASES OF NASAL CAVITY AND SINUSES 07/31/2011 GIRMA PACHECO DO K 382.00 OTITIS MEDIA ACUTE SUPPURATIVE 07/31/2011 GIRMA PACHECO DO K 461.9 SINUSITIS ACUTE 07/31/2011 GIRMA PACHECO DO 478.19 OTHER DISEASES OF NASAL CAVITY AND SINUSES 07/31/2011 GIRMA PACHECO DO 382.00 OTITIS MEDIA ACUTE SUPPURATIVE 07/31/2011 GIRMA PACHECO DO 461.9 SINUSITIS ACUTE 07/31/2011 GIRMA PACHECO DO 478.19 OTHER DISEASES OF NASAL CAVITY AND SINUSES 07/31/2011 LEATHA MULLEN APRN 382.00 OTITIS MEDIA ACUTE SUPPURATIVE 07/31/2011 LEATHA MULLEN APRN 461.9 SINUSITIS ACUTE 07/31/2011 LEATHA MULLEN APRN 478.19 OTHER DISEASES OF NASAL CAVITY AND SINUSES 11/05/2011 V25.02 Contraceptives 11/05/2011 V25.9 CONTRACEPTION MANAGEMENT 11/05/2011 V25.02 Contraceptives 11/05/2011 V25.9 CONTRACEPTION MANAGEMENT 11/05/2011 V25.02 Contraceptives 11/05/2011 V25.9 CONTRACEPTION MANAGEMENT 11/05/2011 V25.02 Contraceptives 11/05/2011 V25.9 CONTRACEPTION MANAGEMENT 11/05/2011 V25.02 Contraceptives 11/05/2011 V25.9 CONTRACEPTION MANAGEMENT 11/05/2011 GIRMA PACHECO DO V25.02 Contraceptives 11/05/2011 GIRMA PACHECO DO V25.9 CONTRACEPTION MANAGEMENT 11/05/2011 GIRMA PACHECO DO V25.02 Contraceptives 11/05/2011 GIRMA PACHECO DO V25.9 CONTRACEPTION MANAGEMENT 11/05/2011 LEATHA MULLEN APRN V25.02 Contraceptives 11/05/2011 LEATHA MULLEN APRN V25.9 CONTRACEPTION MANAGEMENT 11/25/2011 079.99 VIRAL SYNDROME 11/25/2011 079.99 VIRAL SYNDROME 11/25/2011 079.99 VIRAL SYNDROME 11/25/2011 079.99 VIRAL SYNDROME 11/25/2011 079.99 VIRAL SYNDROME 11/25/2011 GIRMA PACHECO DO 079.99 VIRAL SYNDROME 11/25/2011 GIRMA PACHECO DO 079.99 VIRAL SYNDROME 11/25/2011 LEATHA MULLEN APRN 079.99 VIRAL SYNDROME 12/02/2011 075 INFECTIOUS MONONUCLEOSIS 12/02/2011 075 INFECTIOUS MONONUCLEOSIS 12/02/2011 075 INFECTIOUS MONONUCLEOSIS 12/02/2011 075 INFECTIOUS MONONUCLEOSIS 12/02/2011 075 INFECTIOUS MONONUCLEOSIS 12/02/2011 TARA DO GIRMA K 075 INFECTIOUS MONONUCLEOSIS 12/02/2011 PACHECO DO, GIRMA K 075 INFECTIOUS MONONUCLEOSIS 12/02/2011 LEATHA MULLEN APRN 075 INFECTIOUS MONONUCLEOSIS 01/29/2012 V76.2 Cervical Pap Smear 01/29/2012 V76.2 Cervical Pap Smear 01/29/2012 V76.2 Cervical Pap Smear 01/29/2012 V76.2 Cervical Pap Smear 01/29/2012 V76.2 Cervical Pap Smear 01/29/2012 TARA DO, GIRMA K V76.2 Cervical Pap Smear 01/29/2012 PACHECO DO, GIRMA K V76.2 Cervical Pap Smear 01/29/2012 LEATHA MULLEN APRN V76.2 Cervical Pap Smear 01/24/2013 302.70 PSYCHOSEXUAL DYSFUNCTION UNSPECIFIED 01/24/2013 692.9 DERMATITIS CONTACT UNSPECIFIED 01/24/2013 302.70 PSYCHOSEXUAL DYSFUNCTION UNSPECIFIED 01/24/2013 692.9 DERMATITIS CONTACT UNSPECIFIED 01/24/2013 PACHECO DO, GIRMA K 302.70 PSYCHOSEXUAL DYSFUNCTION UNSPECIFIED 01/24/2013 PACHECO DO, GIRMA K 692.9 DERMATITIS CONTACT UNSPECIFIED 01/24/2013 PACHECO DO, GIRMA K 302.70 PSYCHOSEXUAL DYSFUNCTION UNSPECIFIED 01/24/2013 PACHECO DO, GIRMA K 692.9 DERMATITIS CONTACT UNSPECIFIED 01/24/2013 LEATHA MULLEN APRN 302.70 PSYCHOSEXUAL DYSFUNCTION UNSPECIFIED 01/24/2013 LEATHA MULLEN APRN 692.9 DERMATITIS CONTACT UNSPECIFIED 01/27/2013 625.70 VULVODYNIA UNSPECIFIED 01/27/2013 625.70 VULVODYNIA UNSPECIFIED 01/27/2013 NOA PACHECO DOA K 625.70 VULVODYNIA UNSPECIFIED 01/27/2013 PACHECO DO, GIRMA K 625.70 VULVODYNIA UNSPECIFIED 01/27/2013 LEATHA MULLEN APRN 625.70 VULVODYNIA UNSPECIFIED 12/05/2013 LEATAH MULLEN APRN 686.9 UNSPECIFIED LOCAL INFECTION OF SKIN AND SUBCUTANEOUS TISSUE 06/12/2014 JORGE LARSON DO, Ot 625.3 06/12/2014 JORGE LARSON DO Ot V72.63 06/12/2014 LARSON DO, JORGE C Ot V74.8 06/12/2014 JOEL DUKES, SALOMÓN Ortega Ot 625.0 06/12/2014 JOEL DUKES, SALOMÓN Ortega Ot 625.3 06/13/2014 LARSON DO, JORGE C Ot 595.1 06/13/2014 LARSON DO, JORGE C Ot 617.3 06/23/2014 LARSON DO, JORGE C Ot 625.3 06/23/2014 LARSON DO, JORGE C Ot V72.63 06/23/2014 LARSON DO, JORGE C Ot V74.8 08/15/2014 LARSON DO, JORGE C Ot 625.3 08/15/2014 LARSON DO, JORGE C Ot V72.63 08/15/2014 LARSON DO, JORGE C Ot V74.8 05/13/2015 BI DUKES, ESTHER Mesa Ot O47.03 FALSE LABOR BEFORE 37 COMPLETED WEEKS OF 05/13/2015 BI DUKES, ESTHER Mesa Ot Z3A.32 32 WEEKS GESTATION OF 05/16/2015 LARSON DO JORGE C Ot N20.0 CALCULUS OF KIDNEY 05/16/2015 LARSON DO, JORGE C Ot O23.43 UNSP INFCT OF URINARY TRACT IN 05/16/2015 LARSON DO JORGE C Ot O99.89 OTH DISEASES AND CONDITIONS COMPL PREG/C 05/16/2015 LARSON DO JORGE C Ot Z3A.32 32 WEEKS GESTATION OF 06/30/2015 LARSON DO JORGE C Ot O47.9 FALSE LABOR, UNSPECIFIED 06/30/2015 LARSON DO JORGE C Ot Z3A.00 WEEKS OF GESTATION OF NOT SPEC 07/04/2015 LARSON DO JORGE C Ot O20.0 THREATENED 07/04/2015 LARSON DO, JORGE C Ot R32 UNSPECIFIED URINARY INCONTINENCE 07/04/2015 LARSON DO, JORGE C Ot Z3A.00 WEEKS OF GESTATION OF NOT SPEC 07/12/2015 LARSON DO JORGE C Ot O48.0 POST-TERM 07/12/2015 LARSON DO JORGE C Ot O66.9 OBSTRUCTED LABOR, UNSPECIFIED 07/12/2015 LARSON DO, JORGE C Ot O70.1 SECOND DEGREE PERINEAL LACERATION DURING 07/12/2015 JORGE LARSON DO Ot O75.81 MATERNAL EXHAUSTION COMPLICATING LABOR A 07/12/2015 JORGE LARSON DO Ot O76 ABNLT IN HEART RATE AND RHYTHM COM 07/12/2015 JORGE LARSON DO Ot Z37.0 SINGLE LIVE 07/12/2015 JORGE LARSON DO Ot Z3A.40 40 WEEKS GESTATION OF 08/19/2015 NEO WOLF JORGE Montes Ot B96.20 UNSP ESCHERICHIA COLI THE CAUSE OF DI 08/19/2015 JORGE LARSON DO Ot B96.6 BACTEROIDES FRAGILIS THE CAUSE OF DIS 08/19/2015 NEO WOLF JORGE Montes Ot K61.3 ISCHIORECTAL ABSCESS 08/19/2015 NEO WOLF JORGE Montes Ot O99.63 DISEASES OF THE DIGESTIVE SYSTEM COMPLIC 08/31/2015 NEO WOLF JORGE Montes Ot R10.2 09/17/2015 LISA BANKS Ot K80.20 CALCULUS OF GALLBLADDER W/O CHOLECYSTITI 09/17/2015 LISA BANKS Ot K83.8 OTHER SPECIFIED DISEASES OF BILIARY TRAC 09/25/2015 KEHINDE DUKES, JESSIE Mulligan Ot K80.64 CALCULUS OF GB AND BILE DUCT W CHRONIC C 09/18/2016 LARSON JORGE Montes Ot R10.2 PELVIC AND PERINEAL PAIN 09/18/2016 KEHINDE DUKES, JESSIE Mulligan Ot K80.20 CALCULUS OF GALLBLADDER W/O CHOLECYSTITI 09/18/2016 KEHINDE DUKES, JESSIE Mulligan Ot Z01.818 ENCOUNTER FOR OTHER PREPROCEDURAL EXAMIN 10/03/2016 MERCEDES PELAEZ TRAINING AND DEVELOPMENT MANAGER Ot R10.84 GENERALIZED ABDOMINAL PAIN 10/03/2016 MERCEDES PELAEZ TRAINING AND DEVELOPMENT MANAGER Ot R59.0 LOCALIZED ENLARGED LYMPH NODES 12/24/2016 NEO WOLF JORGE Montes Ot O21.9 VOMITING OF , UNSPECIFIED 12/24/2016 NEO WOLF JORGE Montes Ot Z3A.08 8 WEEKS GESTATION OF 04/02/2017 NEO WOLF JORGE Montes Ot R10.2 PELVIC AND PERINEAL PAIN 04/02/2017 KEHINDE DUKES, JESSIE Mulligan Ot K80.20 CALCULUS OF GALLBLADDER W/O CHOLECYSTITI 04/02/2017 KEHINDE DUKES, JESSIE Mulligan Ot Z01.818 ENCOUNTER FOR OTHER PREPROCEDURAL EXAMIN 04/02/2017 MERCEDES PELAEZ APRN Ot R10.84 GENERALIZED ABDOMINAL PAIN 04/02/2017 MERCEDES PELAEZ APRN Ot R59.0 LOCALIZED ENLARGED LYMPH NODES 04/03/2017 LARSONJORGE Brown DO Ot Z36 ENCOUNTER FOR SCREENING OF MOT 04/03/2017 LARSONJORGE Brown DO Ot Z3A.22 22 WEEKS GESTATION OF 04/14/2017 JORGE LARSON DO Ot O99.89 OTH DISEASES AND CONDITIONS COMPL PREG/C 04/14/2017 JORGE LARSON DO Ot R11.0 NAUSEA 04/14/2017 JORGE LARSON DO Ot R19.7 DIARRHEA, UNSPECIFIED 04/14/2017 LARSONJORGE Brown DO Ot Z3A.24 24 WEEKS GESTATION OF 04/16/2017 JORGE LARSON DO Ot Z36 ENCOUNTER FOR SCREENING OF MOT 04/16/2017 LARSONJORGE Brown DO Ot Z3A.22 22 WEEKS GESTATION OF 05/27/2017 LARSONJORGE Brown DO Ot O47.03 FALSE LABOR BEFORE 37 COMPLETED WEEKS OF 05/27/2017 JORGE LARSON DO Ot Z3A.30 30 WEEKS GESTATION OF 06/18/2017 LARSONJORGE Brown DO Ot O47.03 FALSE LABOR BEFORE 37 COMPLETED WEEKS OF 06/18/2017 LARSONJORGE Brown DO Ot Z3A.30 30 WEEKS GESTATION OF 07/09/2017 ALLYN BORDEN DO Ot K52.9 NONINFECTIVE GASTROENTERITIS AND COLITIS 07/09/2017 ALLYN BORDEN DO Ot O99.613 DISEASES OF THE DGSTV SYS COMP 07/09/2017 ALLYN BORDEN DO Ot Z3A.36 36 WEEKS GESTATION OF Procedures Code Description [place] [address] THERAPUTIC INJ SQ/IM 07/07/2012 J1055 DEPO-PROVERA INJ 150 MG 07/07/2012 33315 URINE TEST (IN- HOUSE) 07/07/2012 51462 THERAPUTIC INJ SQ/IM 09/27/2012 J1050 DEPO PROVERA 09/27/2012 52104 URINE TEST (IN- HOUSE) 09/27/2012 18634 URINE TEST (IN- HOUSE) 12/14/2012 46601 THERAPUTIC INJ SQ/IM 12/14/2012 J1050 DEPO PROVERA 12/14/2012 24633 THERAPUTIC INJ SQ/IM 03/02/2013 J1050 DEPO PROVERA 03/02/2013 35952 URINE TEST (IN- HOUSE) 03/02/2013 05290 UA LONG DIP 04/04/2013 45690 UA LONG DIP 04/14/2013 06168 THERAPUTIC INJ SQ/IM 05/24/2013 J1050 DEPO PROVERA 05/24/2013 86230 URINE TEST (IN- HOUSE) 05/24/2013 [id number] OF POC, ABORTIFACIENT, VIA OPEN 07/09/2015 [id number] REPAIR FEMALE PERINEUM, EXTERNAL APPROAC 07/10/2015 Results Test Result Range Comprehensive metabolic panel - 12/24/16 13:17 Serum or plasma sodium measurement (moles/volume) 138 mmol/L 135-145 Serum or plasma potassium measurement (moles/volume) 3.6 mmol/L 3.6-5.0 Serum or plasma chloride measurement (moles/volume) 108 mmol/L 98-107 Carbon dioxide 19 mmol/L 21-32 Serum or plasma anion gap determination (moles/volume) 11 mmol/L 5-14 Serum or plasma urea nitrogen measurement (mass/volume) 7 mg/dL 7-18 Serum or plasma creatinine measurement (mass/volume) 0.64 mg/dL 0.60-1.30 Serum or plasma urea nitrogen/creatinine mass ratio 11 NRG Serum or plasma creatinine measurement with calculation of estimated glomerular filtration rate > NRG Serum or plasma glucose measurement (mass/volume) 83 mg/dL 70-105 Serum or plasma calcium measurement (mass/volume) 9.2 mg/dL 8.5-10.1 Serum or plasma total bilirubin measurement (mass/volume) 0.4 mg/dL 0.1-1.0 Serum or plasma alkaline phosphatase measurement (enzymatic activity/volume) 55 U/L 40-136 Serum or plasma aspartate aminotransferase measurement (enzymatic activity/ volume) 16 U/L 5-34 Serum or plasma alanine aminotransferase measurement (enzymatic activity/volume ) 21 U/L 0-55 Serum or plasma protein measurement (mass/volume) 7.6 g/dL 6.4-8.2 Serum or plasma albumin measurement (mass/volume) 4.3 g/dL 3.2-4.5 Complete urinalysis with reflex to culture - 04/14/17 17:20 Urine color determination YELLOW NRG Urine clarity determination CLEAR NRG Urine pH measurement by test strip 6.5 5-9 Specific gravity of urine by test strip 1.010 1.016- 1.022 Urine protein assay by test strip, semi-quantitative NEGATIVE NEGATIVE Urine glucose detection by automated test strip NEGATIVE NEGATIVE Erythrocytes detection in urine sediment by light microscopy NEGATIVE NEGATIVE Urine ketones detection by automated test strip NEGATIVE NEGATIVE Urine nitrite detection by test strip NEGATIVE NEGATIVE Urine total bilirubin detection by test strip NEGATIVE NEGATIVE Urine urobilinogen measurement by automated test strip (mass/volume) NORMAL NORMAL Urine leukocyte esterase detection by dipstick NEGATIVE NEGATIVE Automated urine sediment erythrocyte count by microscopy (number/high power field) NONE NRG Automated urine sediment leukocyte count by microscopy (number/high power field ) [HPF] NRG Bacteria detection in urine sediment by light microscopy TRACE NRG Squamous epithelial cells detection in urine sediment by light microscopy 2-5 NRG Crystals detection in urine sediment by light microscopy NONE NRG Casts detection in urine sediment by light microscopy NONE NRG Mucus detection in urine sediment by light microscopy NEGATIVE NRG Complete urinalysis with reflex to culture NO NRG Bacterial urine culture - 04/14/17 17:20 URINE CULTURE RESULTS <10,000/ML NRG Complete blood count (CBC) with automated white blood cell (WBC) differential - 04/14/17 18:25 Blood leukocytes automated count (number/volume) 7.7 10*3/uL 4.3-11.0 Blood erythrocytes automated count (number/volume) 3.85 10*6/uL 4.35-5.85 Venous blood hemoglobin measurement (mass/volume) 11.7 g/dL 11.5-16.0 Blood hematocrit (volume fraction) 35 % 35-52 Automated erythrocyte mean corpuscular volume 90 [foz_us] 80-99 Automated erythrocyte mean corpuscular hemoglobin (mass per erythrocyte) 30 pg 25-34 Automated erythrocyte mean corpuscular hemoglobin concentration measurement ( mass/volume) 34 g/dL 32-36 Automated erythrocyte distribution width ratio 13.8 % 10.0-14.5 Automated blood platelet count (count/volume) 176 10*3/uL 130-400 Automated blood platelet mean volume measurement 10.9 [foz_us] 7.4-10.4 Automated blood neutrophils/100 leukocytes 73 % 42-75 Automated blood lymphocytes/100 leukocytes 19 % 12-44 Blood monocytes/100 leukocytes 7 % 0-12 Automated blood eosinophils/100 leukocytes 1 % 0-10 Automated blood basophils/100 leukocytes 0 % 0-10 Blood neutrophils automated count (number/volume) 5.6 10*3 1.8-7.8 Blood lymphocytes automated count (number/volume) 1.5 10*3 1.0-4.0 Blood monocytes automated count (number/volume) 0.6 10*3 0.0-1.0 Automated eosinophil count 0.1 10*3/uL 0.0-0.3 Automated blood basophil count (count/volume) 0.0 10*3/uL 0.0-0.1 Comprehensive metabolic panel - 04/14/17 18:25 Serum or plasma sodium measurement (moles/volume) 136 mmol/L 135-145 Serum or plasma potassium measurement (moles/volume) 3.5 mmol/L 3.6-5.0 Serum or plasma chloride measurement (moles/volume) 109 mmol/L 98-107 Carbon dioxide 16 mmol/L 21-32 Serum or plasma anion gap determination (moles/volume) 11 mmol/L 5-14 Serum or plasma urea nitrogen measurement (mass/volume) 5 mg/dL 7-18 Serum or plasma creatinine measurement (mass/volume) 0.54 mg/dL 0.60-1.30 Serum or plasma urea nitrogen/creatinine mass ratio 9 NRG Serum or plasma creatinine measurement with calculation of estimated glomerular filtration rate > NRG Serum or plasma glucose measurement (mass/volume) 85 mg/dL 70-105 Serum or plasma calcium measurement (mass/volume) 8.4 mg/dL 8.5-10.1 Serum or plasma total bilirubin measurement (mass/volume) 0.3 mg/dL 0.1-1.0 Serum or plasma alkaline phosphatase measurement (enzymatic activity/volume) 74 U/L 40-136 Serum or plasma aspartate aminotransferase measurement (enzymatic activity/ volume) 11 U/L 5-34 Serum or plasma alanine aminotransferase measurement (enzymatic activity/volume ) 10 U/L 0-55 Serum or plasma protein measurement (mass/volume) 6.5 g/dL 6.4-8.2 Serum or plasma albumin measurement (mass/volume) 3.3 g/dL 3.2-4.5 Blood type T Indirect antibody screen panel - 04/14/17 18:30 ABO+Rh group AP NRG Transfusion band number [id number] NRG Blood group antibody screen NEGATIVE NRG Complete urinalysis with reflex to culture - 05/26/17 23:05 Urine color determination YELLOW NRG Urine clarity determination CLEAR NRG Urine pH measurement by test strip 6.5 5-9 Specific gravity of urine by test strip 1.010 1.016- 1.022 Urine protein assay by test strip, semi-quantitative NEGATIVE NEGATIVE Urine glucose detection by automated test strip NEGATIVE NEGATIVE Erythrocytes detection in urine sediment by light microscopy NEGATIVE NEGATIVE Urine ketones detection by automated test strip NEGATIVE NEGATIVE Urine nitrite detection by test strip NEGATIVE NEGATIVE Urine total bilirubin detection by test strip NEGATIVE NEGATIVE Urine urobilinogen measurement by automated test strip (mass/volume) NORMAL NORMAL Urine leukocyte esterase detection by dipstick NEGATIVE NEGATIVE Automated urine sediment erythrocyte count by microscopy (number/high power field) NONE NRG Automated urine sediment leukocyte count by microscopy (number/high power field ) NONE NRG Bacteria detection in urine sediment by light microscopy NEGATIVE NRG Squamous epithelial cells detection in urine sediment by light microscopy 2-5 NRG Crystals detection in urine sediment by light microscopy NONE NRG Casts detection in urine sediment by light microscopy NONE NRG Mucus detection in urine sediment by light microscopy NEGATIVE NRG Complete urinalysis with reflex to culture NO NRG Complete urinalysis with reflex to culture - 07/06/17 15:00 Urine color determination YELLOW NRG Urine clarity determination CLEAR NRG Urine pH measurement by test strip 5 5-9 Specific gravity of urine by test strip 1.030 1.016- 1.022 Urine protein assay by test strip, semi-quantitative 2+ NEGATIVE Urine glucose detection by automated test strip NEGATIVE NEGATIVE Erythrocytes detection in urine sediment by light microscopy 1+ NEGATIVE Urine ketones detection by automated test strip 4+ NEGATIVE Urine nitrite detection by test strip NEGATIVE NEGATIVE Urine total bilirubin detection by test strip NEGATIVE NEGATIVE Urine urobilinogen measurement by automated test strip (mass/volume) NORMAL NORMAL Urine leukocyte esterase detection by dipstick NEGATIVE NEGATIVE Automated urine sediment erythrocyte count by microscopy (number/high power field) RARE NRG Automated urine sediment leukocyte count by microscopy (number/high power field ) RARE NRG Bacteria detection in urine sediment by light microscopy NEGATIVE NRG Squamous epithelial cells detection in urine sediment by light microscopy >50 NRG Crystals detection in urine sediment by light microscopy NONE NRG Casts detection in urine sediment by light microscopy NONE NRG Mucus detection in urine sediment by light microscopy MODERATE NRG Complete urinalysis with reflex to culture NO NRG Complete blood count (CBC) with automated white blood cell (WBC) differential - 07/06/17 16:01 Blood leukocytes automated count (number/volume) 16.5 10*3/uL 4.3-11.0 Blood erythrocytes automated count (number/volume) 4.39 10*6/uL 4.35-5.85 Venous blood hemoglobin measurement (mass/volume) 12.4 g/dL 11.5-16.0 Blood hematocrit (volume fraction) 37 % 35-52 Automated erythrocyte mean corpuscular volume 84 [foz_us] 80-99 Automated erythrocyte mean corpuscular hemoglobin (mass per erythrocyte) 28 pg 25-34 Automated erythrocyte mean corpuscular hemoglobin concentration measurement ( mass/volume) 34 g/dL 32-36 Automated erythrocyte distribution width ratio 15.0 % 10.0-14.5 Automated blood platelet count (count/volume) 226 10*3/uL 130-400 Automated blood platelet mean volume measurement 10.6 [foz_us] 7.4-10.4 Automated blood neutrophils/100 leukocytes 89 % 42-75 Automated blood lymphocytes/100 leukocytes 5 % 12-44 Blood monocytes/100 leukocytes 5 % 0-12 Automated blood eosinophils/100 leukocytes 0 % 0-10 Automated blood basophils/100 leukocytes 0 % 0-10 Blood neutrophils automated count (number/volume) 14.7 10*3 1.8-7.8 Blood lymphocytes automated count (number/volume) 0.9 10*3 1.0-4.0 Blood monocytes automated count (number/volume) 0.9 10*3 0.0-1.0 Automated eosinophil count 0.0 10*3/uL 0.0-0.3 Automated blood basophil count (count/volume) 0.0 10*3/uL 0.0-0.1 Comprehensive metabolic panel - 07/06/17 16:01 Serum or plasma sodium measurement (moles/volume) 137 mmol/L 135-145 Serum or plasma potassium measurement (moles/volume) 3.5 mmol/L 3.6-5.0 Serum or plasma chloride measurement (moles/volume) 109 mmol/L 98-107 Carbon dioxide 16 mmol/L 21-32 Serum or plasma anion gap determination (moles/volume) 12 mmol/L 5-14 Serum or plasma urea nitrogen measurement (mass/volume) 6 mg/dL 7-18 Serum or plasma creatinine measurement (mass/volume) 0.54 mg/dL 0.60-1.30 Serum or plasma urea nitrogen/creatinine mass ratio 11 NRG Serum or plasma creatinine measurement with calculation of estimated glomerular filtration rate > NRG Serum or plasma glucose measurement (mass/volume) 84 mg/dL 70-105 Serum or plasma calcium measurement (mass/volume) 8.6 mg/dL 8.5-10.1 Serum or plasma total bilirubin measurement (mass/volume) 0.4 mg/dL 0.1-1.0 Serum or plasma alkaline phosphatase measurement (enzymatic activity/volume) 103 U/L 40-136 Serum or plasma aspartate aminotransferase measurement (enzymatic activity/ volume) 18 U/L 5-34 Serum or plasma alanine aminotransferase measurement (enzymatic activity/volume ) 14 U/L 0-55 Serum or plasma protein measurement (mass/volume) 6.9 g/dL 6.4-8.2 Serum or plasma albumin measurement (mass/volume) 3.5 g/dL 3.2-4.5 Blood manual differential performed detection - 07/06/17 16:01 Blood monocytes/100 leukocytes 2 % NRG Manual blood segmented neutrophils/100 leukocytes 93 % NRG Blood band neutrophils/100 leukocytes 0 % NRG Manual blood lymphocytes/100 leukocytes 5 % NRG Manual eosinophils/100 leukocytes in nose 0 % NRG Manual blood basophils/100 leukocytes 0 % NRG Blood erythrocyte morphology finding identification NORMAL NR Complete blood count (CBC) with automated white blood cell (WBC) differential - 07/15/17 20:40 Blood leukocytes automated count (number/volume) 9.9 10*3/uL 4.3-11.0 Blood erythrocytes automated count (number/volume) 4.29 10*6/uL 4.35-5.85 Venous blood hemoglobin measurement (mass/volume) 11.9 g/dL 11.5-16.0 Blood hematocrit (volume fraction) 36 % 35-52 Automated erythrocyte mean corpuscular volume 85 [foz_us] 80-99 Automated erythrocyte mean corpuscular hemoglobin (mass per erythrocyte) 28 pg 25-34 Automated erythrocyte mean corpuscular hemoglobin concentration measurement ( mass/volume) 33 g/dL 32-36 Automated erythrocyte distribution width ratio 15.3 % 10.0-14.5 Automated blood platelet count (count/volume) 228 10*3/uL 130-400 Automated blood platelet mean volume measurement 10.7 [foz_us] 7.4-10.4 Automated blood neutrophils/100 leukocytes 73 % 42-75 Automated blood lymphocytes/100 leukocytes 19 % 12-44 Blood monocytes/100 leukocytes 8 % 0-12 Automated blood eosinophils/100 leukocytes 1 % 0-10 Automated blood basophils/100 leukocytes 0 % 0-10 Blood neutrophils automated count (number/volume) 7.2 10*3 1.8-7.8 Blood lymphocytes automated count (number/volume) 1.9 10*3 1.0-4.0 Blood monocytes automated count (number/volume) 0.8 10*3 0.0-1.0 Automated eosinophil count 0.1 10*3/uL 0.0-0.3 Automated blood basophil count (count/volume) 0.0 10*3/uL 0.0-0.1 Cervical mucus ferning detection by microscopy - 07/15/17 20:40 Cervical mucus ferning detection by microscopy NEGATIVE NEGATIVE Complete urinalysis with reflex to culture - 07/26/17 23:50 Urine color determination YELLOW NRG Urine clarity determination CLEAR NRG Urine pH measurement by test strip 6.5 5-9 Specific gravity of urine by test strip 1.015 1.016- 1.022 Urine protein assay by test strip, semi-quantitative NEGATIVE NEGATIVE Urine glucose detection by automated test strip NEGATIVE NEGATIVE Erythrocytes detection in urine sediment by light microscopy NEGATIVE NEGATIVE Urine ketones detection by automated test strip NEGATIVE NEGATIVE Urine nitrite detection by test strip NEGATIVE NEGATIVE Urine total bilirubin detection by test strip NEGATIVE NEGATIVE Urine urobilinogen measurement by automated test strip (mass/volume) NORMAL NORMAL Urine leukocyte esterase detection by dipstick 1+ NEGATIVE Automated urine sediment erythrocyte count by microscopy (number/high power field) NONE NRG Automated urine sediment leukocyte count by microscopy (number/high power field ) RARE NRG Bacteria detection in urine sediment by light microscopy TRACE NRG Squamous epithelial cells detection in urine sediment by light microscopy 10-25 NRG Crystals detection in urine sediment by light microscopy NONE NRG Casts detection in urine sediment by light microscopy NONE NRG Mucus detection in urine sediment by light microscopy NEGATIVE NRG Complete urinalysis with reflex to culture NO NRG Complete urinalysis with reflex to culture - 07/27/17 06:57 Urine color determination YELLOW NRG Urine clarity determination CLEAR NRG Urine pH measurement by test strip 6 5-9 Specific gravity of urine by test strip 1.015 1.016- 1.022 Urine protein assay by test strip, semi-quantitative NEGATIVE NEGATIVE Urine glucose detection by automated test strip NEGATIVE NEGATIVE Erythrocytes detection in urine sediment by light microscopy NEGATIVE NEGATIVE Urine ketones detection by automated test strip 3+ NEGATIVE Urine nitrite detection by test strip NEGATIVE NEGATIVE Urine total bilirubin detection by test strip NEGATIVE NEGATIVE Urine urobilinogen measurement by automated test strip (mass/volume) NORMAL NORMAL Urine leukocyte esterase detection by dipstick 1+ NEGATIVE Automated urine sediment erythrocyte count by microscopy (number/high power field) RARE NRG Automated urine sediment leukocyte count by microscopy (number/high power field ) [HPF] NRG Bacteria detection in urine sediment by light microscopy NEGATIVE NRG Squamous epithelial cells detection in urine sediment by light microscopy 10-25 NRG Crystals detection in urine sediment by light microscopy NONE NRG Casts detection in urine sediment by light microscopy NONE NRG Mucus detection in urine sediment by light microscopy SMALL NRG Complete urinalysis with reflex to culture NO NRG Complete blood count (CBC) with automated white blood cell (WBC) differential - 07/27/17 08:10 Blood leukocytes automated count (number/volume) 12.6 10*3/uL 4.3-11.0 Blood erythrocytes automated count (number/volume) 4.15 10*6/uL 4.35-5.85 Venous blood hemoglobin measurement (mass/volume) 11.1 g/dL 11.5-16.0 Blood hematocrit (volume fraction) 37 % 35-52 Automated erythrocyte mean corpuscular volume 89 [foz_us] 80-99 Automated erythrocyte mean corpuscular hemoglobin (mass per erythrocyte) 27 pg 25-34 Automated erythrocyte mean corpuscular hemoglobin concentration measurement ( mass/volume) 30 g/dL 32-36 Automated erythrocyte distribution width ratio 15.1 % 10.0-14.5 Automated blood platelet count (count/volume) 226 10*3/uL 130-400 Automated blood platelet mean volume measurement 9.5 [foz_us] 7.4-10.4 Automated blood neutrophils/100 leukocytes 81 % 42-75 Automated blood lymphocytes/100 leukocytes 12 % 12-44 Blood monocytes/100 leukocytes 7 % 0-12 Automated blood eosinophils/100 leukocytes 0 % 0-10 Automated blood basophils/100 leukocytes 0 % 0-10 Blood neutrophils automated count (number/volume) 10.3 10*3 1.8-7.8 Blood lymphocytes automated count (number/volume) 1.5 10*3 1.0-4.0 Blood monocytes automated count (number/volume) 0.8 10*3 0.0-1.0 Automated eosinophil count 0.0 10*3/uL 0.0-0.3 Automated blood basophil count (count/volume) 0.0 10*3/uL 0.0-0.1 Blood type T Indirect antibody screen panel - 07/27/17 08:10 ABO+Rh group AP NRG Transfusion band number [id number] NRG Blood group antibody screen NEGATIVE NRG Encounters ACCT No. Visit Date/Time Discharge Status Pt. Type Provider Facility Loc./Unit Complaint [id number] 12/05/2013 16:10:00 12/05/2013 23:59:59 CLS Outpatient LEATHA MULLEN APRN [id number] 05/24/2013 12:19:00 05/24/2013 23:59:59 CLS Outpatient GIRMA PACHECO DO [id number] 04/14/2013 15:10:00 04/14/2013 23:59:59 CLS Outpatient GIRMA PACHECO DO [id number] 09/27/2012 11:34:00 09/27/2012 23:59:59 CLS Outpatient [id number] 07/07/2012 08:25:00 07/07/2012 23:59:59 CLS Outpatient [id number] 04/04/2013 16:11:00 Document Registration [id number] 03/02/2013 09:32:00 Document Registration [id number] 12/14/2012 11:03:00 Document Registration [id number] 07/18/2017 19:23:00 07/18/2017 21:05:00 DIS Outpatient ESTHER PAT MD [facility] CONTRACTIONS [id number] 07/15/2017 18:55:00 07/15/2017 23:50:00 DIS Outpatient ESTHER PAT MD [facility] CONTRACTIONS [id number] 2017 14:55:00 2017 21:05:00 DIS Outpatient ALLYN BORDEN DO [facility] N/V/D [id number] 05/26/2017 22:50:00 05/27/2017 00:05:00 DIS Outpatient LARSONJORGE Brown DO [facility] CONTRACTIONS [id number] 04/14/2017 17:06:00 04/14/2017 22:45:00 DIS Outpatient JORGE LARSON DO [facility] CONTRACTIONS;LOWER BACK PAIN;STOMACH PAIN;N/V [id number] 04/02/2017 11:33:00 04/02/2017 23:59:59 CLS Outpatient JORGE LARSON DO [facility] RAD [id number] 12/24/2016 12:32:00 12/24/2016 18:30:00 DIS Outpatient JORGE LARSON DO [facility] NAUSEA,VOMITING [id number] 12/01/2016 12:00:00 12/01/2016 23:59:59 CLS Preadmit JESSIE BUSBY MD [facility] FISTULA [id number] 11/26/2016 10:00:00 11/26/2016 23:59:59 CLS Preadmit JESSIE BUSBY MD [facility] PREOP FLEX SIG; FISTULOTOMY; POSS SETON PLACEMENT [id number] 09/18/2016 18:18:00 09/18/2016 23:59:59 CLS Outpatient MERCEDES PELAEZ APRN [facility] RAD GENERALIZED ABD PAIN [id number] 09/25/2015 05:50:00 09/25/2015 13:15:00 DIS Outpatient JESSIE BUSBY MD [facility] GALLSTONES [id number] 09/24/2015 05:44:00 09/24/2015 23:59:59 CLS Outpatient JESSIE BUSBY MD [facility] PREOP GALLSTONES [id number] 09/17/2015 16:28:00 09/17/2015 21:18:00 DIS Emergency LISA BANKS [facility] ER BACK/CHEST/ABD PAIN [id number] 08/17/2015 20:08:00 08/19/2015 12:40:00 DIS Outpatient LARSONJORGE Brown DO [facility] PELVIC PERINEAL PAIN [id number] 08/17/2015 10:57:00 08/17/2015 23:59:59 CLS Outpatient JORGE LARSON DO [facility] RAD PELVIC AND PARINEAL PAIN [id number] 07/09/2015 19:09:00 07/12/2015 13:26:00 DIS Inpatient JORGE LARSON DO [facility] LDRP INDUCTION [id number] 07/04/2015 15:26:00 07/04/2015 17:50:00 DIS Outpatient JORGE LARSON DO [facility] LEAKING [id number] 06/29/2015 22:45:00 06/30/2015 03:05:00 DIS Outpatient JORGE LARSON DO [facility] CTXS [id number] 05/16/2015 16:30:00 05/16/2015 17:55:00 DIS Outpatient JORGE LARSON DO [facility] KIDNEY STONES [id number] 05/12/2015 23:10:00 05/13/2015 01:04:00 DIS Outpatient ESTHER PAT MD [facility] BACK PAIN/ ABDOMINAL PAIN/ VAGINAL PAIN [id number] 06/13/2014 06:58:00 06/13/2014 14:30:00 DIS Outpatient JORGE LARSON DO [facility] [id number] 06/07/2014 12:43:00 06/07/2014 23:59:59 CLS Outpatient JORGE LARSON DO [facility] PREOP [id number] 11/07/2013 14:48:00 11/07/2013 23:59:59 CLS Outpatient SALOMÓN MALDONADO MD [facility] RAD [id number] 07/27/2017 07:23:00 Document Registration [id number] 07/27/2017 00:14:00 Document Registration [id number] 07/26/2017 20:00:00 JORGE Kurtz DO
[2017-07-27] MEDS ORDERED: OXYTOCIN/NORMAL SALINE 500 ML IV ONE (17:15)
[2017-07-27] MEDS ORDERED: OXYTOCIN/NORMAL SALINE 500 ML IV SCH ×2 (17:30→21:00)
[2017-07-27] MEDS ORDERED: LIDOCAINE/EPI 2% 1:200,00 (XYLOCAINE) 10 ML VIAL ONE (20:02)
[2017-07-27] MEDS ORDERED: MEASLES,MUMPS,RUBELLA 1 EA INJ SQ ONE (21:00)
[2017-07-27] MEDS ORDERED: DIBUCAINE (NUPERCAINAL) 1% OINT 30 GM TOP PRN (21:00)
[2017-07-27] MEDS ORDERED: WITCH HAZEL(TUCKS) 40 EA JAR TOP PRN (21:00)
[2017-07-27] MEDS ORDERED: TETANUS,DIPTH,PERTUSS P/F (BOOSTRIX) 0.5 ML VIAL IM ONE (21:00)
[2017-07-27] MEDS ORDERED: HYDROcodone/APAP 5 MG/325 MG (LORTAB) TAB PO PRN (21:00)
[2017-07-27] MEDS ORDERED: BENZOCAINE/MENTHOL (DERMOPLAST) 56 ML CAN TP PRN (21:00)
--- NOTE | 2017-07-27 21:05 | OB Labor & Delivery Record ---
Vag Delivery Note Vag Delivery Note Date of Delivery: 07/27/17 Preoperative Diagnosis: Adri Sibley is a 27 /Para 2 /1 ,Gestational Age 39 weeks 2 with spontaneous labor Postoperative Diagnosis: Same Surgeon: JORGE LARSON Anesthesia: epidural Delivery Type: Findings: Viable female infant, apgars 8/9, weight 832oz Lacerations: Intact placenta with 3 vessel cord. tight nuchal cord delivered through, no body cord or shoulder dystocia Estimated Blood Loss: 500 ml Complications: None Condition: Stable Description of Procedure: The patient is a 27 /Para 2 /1 ,Gestational Age 39 weeks 2 with spontaneous labor. She was admitted and informed consent was obtained. Her labor course was remarkable for spontaneous labor, AROM, epidural and then pitocin augmentin when she stalled at 7 cm dilation. She progressed to complete dilatation and began to push. She was then set up for delivery. The infant's head was delivered atraumatically in the OA position. The shoulders and remainder of the 's body were then delivered without difficulty, through a tight nuchal cord. Upon delivery, the head was held below the level of the perineum and the mouth and nares were bulb suctioned. The cord was doubly clamped and cut and the was handed off to the pediatric staff. An intact placenta with 3-vessel cord delivered via Noe and there was found to be moderate bleeding.~ Vigorous fundal massage was performed and the fundus was found to be firm. IV oxytocin was given. Examination of the vagina and perineum revealed a 2nd laceration without extension repaired in the usual fashion with 3-0 vicryl suture. Following the repair, sponge, instrument and needle counts were correct. Mom and baby were both in stable condition in the labor suite. Vitals - Labs Vital Signs - I&O Vital Signs Date Time Temp Pulse Resp B/P (MAP) Pulse Ox O2 Delivery O2 Flow Rate FiO2 07/27/17 18:50 98.9 98 18 130/61 (84) Room Air 07/27/17 18:40 98 18 123/58 (79) Room Air 07/27/17 18:30 106 20 125/61 (82) Room Air 07/27/17 18:20 87 20 121/56 (77) Room Air 07/27/17 18:10 88 18 122/58 (79) Room Air 07/27/17 18:00 85 18 123/59 (80) Room Air 07/27/17 17:30 89 20 115/56 (75) 97 Room Air 07/27/17 17:15 91 20 127/62 (83) 97 Room Air 07/27/17 17:00 106 20 125/60 (81) 98 Room Air 07/27/17 16:45 111 20 121/59 (79) 99 Room Air 07/27/17 16:30 100.2 84 18 119/57 (77) 99 Room Air 07/27/17 16:15 111 20 121/59 (79) 99 Room Air 07/27/17 16:00 85 20 121/59 (79) 99 Room Air 07/27/17 15:45 96 18 116/61 (79) 99 Room Air 07/27/17 15:30 94 18 118/62 (80) 99 Room Air 07/27/17 15:15 105 16 128/61 (83) 99 Room Air 07/27/17 15:00 100 16 118/57 (77) 98 Room Air 07/27/17 14:45 90 16 115/56 (75) 98 Room Air 07/27/17 14:30 88 18 112/56 (74) 98 Room Air 07/27/17 14:15 81 18 114/56 (75) 98 Room Air 07/27/17 14:00 77 18 115/55 (75) 98 Room Air 07/27/17 13:45 68 18 113/56 (75) 99 Room Air 07/27/17 13:30 66 18 115/56 (75) 99 Room Air 07/27/17 13:15 73 20 118/55 (76) 100 Room Air 07/27/17 13:00 115 20 72/53 (59) 100 Room Air 07/27/17 12:45 99.0 76 20 98/52 (67) 100 Room Air 07/27/17 12:30 100 18 106/54 (71) 100 Room Air 07/27/17 12:20 93 18 115/62 (79) 100 Room Air 07/27/17 12:15 87 20 116/58 (77) 100 Room Air 07/27/17 12:00 81 20 112/56 (74) 100 Room Air 07/27/17 11:45 71 18 115/58 (77) 99 Room Air 07/27/17 11:30 71 18 110/53 (72) 99 Room Air 07/27/17 11:15 62 16 104/50 (68) 100 Room Air 07/27/17 11:00 71 16 106/52 (70) 100 Room Air 07/27/17 10:45 101 18 115/51 (72) 100 Room Air 07/27/17 10:30 89 18 114/55 (74) 100 Room Air 07/27/17 10:20 71 16 116/58 (77) 100 Room Air 07/27/17 10:15 82 16 123/57 (79) 100 Room Air 07/27/17 10:10 86 18 134/63 (86) 100 Room Air 07/27/17 10:05 82 18 120/53 (75) 100 Room Air 07/27/17 10:00 102 16 118/58 (78) 100 Room Air 07/27/17 09:55 73 16 118/58 (78) 99 Room Air 07/27/17 09:50 78 16 126/66 (86) 99 Room Air 07/27/17 09:45 77 18 122/58 (79) 100 Room Air 07/27/17 09:40 96 18 124/53 (76) 99 Room Air 07/27/17 09:35 83 18 116/62 (80) 99 Room Air 07/27/17 09:30 74 20 124/58 (80) 99 Room Air 07/27/17 09:25 104 20 145/61 (89) 99 Room Air 07/27/17 09:20 93 20 129/63 (85) 100 Room Air 07/27/17 09:15 93 20 125/62 (83) Room Air 07/27/17 09:10 95 20 125/59 (81) Room Air 07/27/17 09:00 83 20 126/60 (82) Room Air 07/27/17 08:30 77 20 121/58 (79) Room Air 07/27/17 08:15 80 18 123/56 (78) Room Air 07/27/17 07:40 97.8 91 18 122/57 (78) Room Air 07/27/17 07:00 98.2 82 18 128/58 (81) Room Air Labs Laboratory Tests 07/27/17 06:57: Urine Color YELLOW, Urine Clarity CLEAR, Urine pH 6, Urine Specific [place] 1.015L, Urine Protein NEGATIVE, Urine Glucose (UA) NEGATIVE, Urine Ketones 3+H, Urine Nitrite NEGATIVE, Urine Bilirubin NEGATIVE, Urine Urobilinogen NORMAL, Urine Leukocyte Esterase 1+H, Urine RBC (Auto) NEGATIVE, Urine RBC RARE, Urine WBC 0-2, Urine Squamous Epithelial Cells 10-25H, Urine Crystals NONE, Urine Bacteria NEGATIVE, Urine Casts NONE, Urine Mucus SMALLH, Urine Culture Indicated NO 07/27/17 08:10: White Blood Count 12.6H, Red Blood Count 4.15L, Hemoglobin 11.1L, Hematocrit 37 , Mean Corpuscular Volume 89, Mean Corpuscular Hemoglobin 27, Mean Corpuscular Hemoglobin Concent 30L, Red Cell Distribution Width 15.1H, Platelet Count 226, Mean Platelet Volume 9.5, Neutrophils (%) (Auto) 81H, Lymphocytes (%) (Auto) 12 , Monocytes (%) (Auto) 7, Eosinophils (%) (Auto) 0, Basophils (%) (Auto) 0, Neutrophils # (Auto) 10.3H, Lymphocytes # (Auto) 1.5, Monocytes # (Auto) 0.8, Eosinophils # (Auto) 0.0, Basophils # (Auto) 0.0 JORGE LARSON DO Jul 27, 2017 21:05
[2017-07-27] MEDS: DOCUSATE SODIUM 100 MG (COLACE) CAP PO SCH (22:01)
[2017-07-27] MEDS: IBUPROFEN 600 MG (MOTRIN) TAB PO SCH (22:01)
[2017-07-28 03:05] VITALS: BP 86/49
[2017-07-28 04:25] VITALS: BP 98/50
[2017-07-28] MEDS: IBUPROFEN 600 MG (MOTRIN) TAB PO SCH ×4 (04:30→19:53)
[2017-07-28 05:57] LABS: BASOPHILS % (AUTO) 0 % (0-10); EOSINOPHILS # (AUTO) 0.1 10^3/uL (0.0-0.3); EOSINOPHILS % (AUTO) 0 % (0-10); HEMATOCRIT 28 % (35-52); HEMOGLOBIN 9.2 G/DL (11.5-16.0); LYMPHOCYTES # (AUTO) 1.5 X 10^3 (1.0-4.0); LYMPHOCYTES % (AUTO) 10 % (12-44); MEAN CORPUSCULAR HEMOGLOBIN 27 PG (25-34); MEAN CORPUSCULAR HGB CONC 33 G/DL (32-36); MEAN CORPUSCULAR VOLUME 83 FL (80-99); MEAN PLATELET VOLUME 10.9 FL (7.4-10.4); MONOCYTES # (AUTO) 1.1 X 10^3 (0.0-1.0); MONOCYTES % (AUTO) 7 % (0-12); NEUTROPHILS # (AUTO) 12.8 X 10^3 (1.8-7.8); NEUTROPHILS % (AUTO) 83 % (42-75); PLATELET COUNT 180 10^3/uL (130-400); RED BLOOD COUNT 3.37 10^6/uL (4.35-5.85); RED CELL DISTRIBUTION WIDTH 15.2 % (10.0-14.5); WHITE BLOOD COUNT 15.4 10^3/uL (4.3-11.0)
[2017-07-28] MEDS ORDERED: PRENATAL VITAMIN 1 EA TAB PO SCH (07:00)
[2017-07-28 08:30] VITALS: BP 134/70
[2017-07-28] MEDS: DOCUSATE SODIUM 100 MG (COLACE) CAP PO SCH ×2 (08:36→19:53)
[2017-07-28] MEDS: FERROUS SULF 325 MG (IRON) TAB PO SCH (08:36)
--- NOTE | 2017-07-28 10:17 | Postpartum Progress Note ---
Note Note Day # [] Subjective: Patient is without complaints. Ambulating, voiding. Tolerating a regular diet without nausea or vomiting. Normal lochia. Pain is well controlled with oral pain medications. breast feeding. Objective: Laboratory Tests Test 07/28/17 05:30 Range/Units White Blood Count 15.4 H 4.3-11.0 10^3/uL Red Blood Count 3.37 L 4.35-5.85 10^6/uL Hemoglobin 9.2 L 11.5-16.0 G/DL Hematocrit 28 L 35-52 % Mean Corpuscular Volume 83 80-99 FL Mean Corpuscular Hemoglobin 27 25-34 PG Mean Corpuscular Hemoglobin Concent 33 32-36 G/DL Red Cell Distribution Width 15.2 H 10.0-14.5 % Platelet Count 180 130-400 10^3/uL Mean Platelet Volume 10.9 H 7.4-10.4 FL Neutrophils (%) (Auto) 83 H 42-75 % Lymphocytes (%) (Auto) 10 L 12-44 % Monocytes (%) (Auto) 7 0-12 % Eosinophils (%) (Auto) 0 0-10 % Basophils (%) (Auto) 0 0-10 % Neutrophils # (Auto) 12.8 H 1.8-7.8 X 10^3 Lymphocytes # (Auto) 1.5 1.0-4.0 X 10^3 Monocytes # (Auto) 1.1 H 0.0-1.0 X 10^3 Eosinophils # (Auto) 0.1 0.0-0.3 10^3/uL Basophils # (Auto) 0.0 0.0-0.1 10^3/uL Vital Sign - Last 12Hours 07/28/17 07/28/17 07/28/17 03:05 04:25 08:30 Temp 98.5 97.6 97.3 Pulse 98 97 104 Resp 18 14 16 B/P (MAP) 86/49 (61) 98/50 (66) 134/70 (91) Pulse Ox 98 98 98 O2 Delivery Room Air Intake and Output 07/28/17 00:00 Intake Total 1500 ml Balance 1500 ml Physical Exam: General - Alert and oriented, no apparent distress Abdomen - Soft, appropriately tender to palpation, non-distended, fundus firm at umbilicus Extremities - no edema, negative Jason's bilaterally Assessment: 1. post- day # 1, status post spont vaginal delivery. Recovering well, hemodynamically stable Acute blood loss anemia Plan: Routine care. Encourage breast feeding. Encourage ambulation. Ferrous sulfate supplementation. Plan for discharge thursday Vitals - Labs Vital Signs - I&O Vital Signs Date Time Temp Pulse Resp B/P (MAP) Pulse Ox O2 Delivery O2 Flow Rate FiO2 07/28/17 08:30 97.3 104 16 134/70 (91) 98 Room Air 07/28/17 04:25 97.6 97 14 98/50 (66) 98 07/28/17 03:05 98.5 98 18 86/49 (61) 98 07/27/17 22:10 98.2 91 122/64 (83) 99 07/27/17 21:15 98.7 80 132/54 (80) 99 07/27/17 20:40 115 96 OxyMask 100.00 6.00 07/27/17 20:30 106 100 OxyMask 100.00 6.00 07/27/17 20:20 105 134/61 (85) Room Air 07/27/17 20:10 92 120/57 (78) Room Air 07/27/17 20:00 86 128/58 (81) Room Air 07/27/17 19:50 80 126/59 (81) Room Air 07/27/17 19:40 94 116/62 (80) Room Air 07/27/17 19:30 90 20 130/73 (92) Room Air 07/27/17 19:20 99.3 92 18 128/60 (82) Room Air 07/27/17 19:10 98.3 92 18 131/60 (83) 99 Room Air 07/27/17 18:50 98.9 98 18 130/61 (84) Room Air 07/27/17 18:40 98 18 123/58 (79) Room Air 07/27/17 18:30 106 20 125/61 (82) Room Air 07/27/17 18:20 87 20 121/56 (77) Room Air 07/27/17 18:10 88 18 122/58 (79) Room Air 07/27/17 18:00 85 18 123/59 (80) Room Air 07/27/17 17:30 89 20 115/56 (75) 97 Room Air 07/27/17 17:15 91 20 127/62 (83) 97 Room Air 07/27/17 17:00 106 20 125/60 (81) 98 Room Air 07/27/17 16:45 111 20 121/59 (79) 99 Room Air 07/27/17 16:30 100.2 84 18 119/57 (77) 99 Room Air 07/27/17 16:15 111 20 121/59 (79) 99 Room Air 07/27/17 16:00 85 20 121/59 (79) 99 Room Air 07/27/17 15:45 96 18 116/61 (79) 99 Room Air 07/27/17 15:30 94 18 118/62 (80) 99 Room Air 07/27/17 15:15 105 16 128/61 (83) 99 Room Air 07/27/17 15:00 100 16 118/57 (77) 98 Room Air 07/27/17 14:45 90 16 115/56 (75) 98 Room Air 07/27/17 14:30 88 18 112/56 (74) 98 Room Air 07/27/17 14:15 81 18 114/56 (75) 98 Room Air 07/27/17 14:00 77 18 115/55 (75) 98 Room Air 07/27/17 13:45 68 18 113/56 (75) 99 Room Air 07/27/17 13:30 66 18 115/56 (75) 99 Room Air 07/27/17 13:15 73 20 118/55 (76) 100 Room Air 07/27/17 13:00 115 20 72/53 (59) 100 Room Air 07/27/17 12:45 99.0 76 20 98/52 (67) 100 Room Air 07/27/17 12:30 100 18 106/54 (71) 100 Room Air 07/27/17 12:20 93 18 115/62 (79) 100 Room Air 07/27/17 12:15 87 20 116/58 (77) 100 Room Air 07/27/17 12:00 81 20 112/56 (74) 100 Room Air 07/27/17 11:45 71 18 115/58 (77) 99 Room Air 07/27/17 11:30 71 18 110/53 (72) 99 Room Air 07/27/17 11:15 62 16 104/50 (68) 100 Room Air 07/27/17 11:00 71 16 106/52 (70) 100 Room Air 07/27/17 10:45 101 18 115/51 (72) 100 Room Air 07/27/17 10:30 89 18 114/55 (74) 100 Room Air 07/27/17 10:20 71 16 116/58 (77) 100 Room Air I & O 07/28/17 07:00 Intake Total 2000 ml Balance 2000 ml Labs Laboratory Tests 07/28/17 05:30: White Blood Count 15.4H, Red Blood Count 3.37L, Hemoglobin 9.2L, Hematocrit 28L , Mean Corpuscular Volume 83, Mean Corpuscular Hemoglobin 27, Mean Corpuscular Hemoglobin Concent 33, Red Cell Distribution Width 15.2H, Platelet Count 180, Mean Platelet Volume 10.9H, Neutrophils (%) (Auto) 83H, Lymphocytes (%) (Auto) 10L, Monocytes (%) (Auto) 7, Eosinophils (%) (Auto) 0, Basophils (%) (Auto) 0, Neutrophils # (Auto) 12.8H, Lymphocytes # (Auto) 1.5, Monocytes # (Auto) 1.1H, Eosinophils # (Auto) 0.1, Basophils # (Auto) 0.0 JORGE LARSON DO Jul 28, 2017 10:17
--- NOTE | 2017-07-28 10:50 | Anesthesia-Regional Post-Op ---
Regional Patient Condition Mental Status: Alert, Oriented x3 Circulation: Same as Pre-Op Headache: Absent Sensation: Full Recovery Motor Block: Absent Post Op Complications Complications None Follow Up Care/Instructions Patient Instructions None needed. Anesthesia/Patient Condition Patient is doing well, no complaints, stable vital signs, no apparent adverse anesthesia problems. No complications reported per nursing. SANYA BHAT CRNA Jul 28, 2017 10:50
[2017-07-28 13:23] VITALS: BP 126/73
[2017-07-28 19:54] VITALS: BP 131/76
[2017-07-29 02:19] VITALS: BP 118/55
[2017-07-29] MEDS ORDERED: ACHD5005 PO ×2 (07:40)
[2017-07-29] MEDS ORDERED: IBUP-1773 PO ×2 (07:40)
[2017-07-29] MEDS ORDERED: DOCU100C37 PO ×2 (07:40)
[2017-07-29] MEDS ORDERED: FERR325T18 PO ×2 (07:40)
--- NOTE | 2017-07-29 07:41 | Discharge Inst-Women's Service ---
Discharge Inst-Women's Serv Depart Medication/Instructions New, Converted or Re-Newed RX: Transmitted to Pharmacy Instructions Print and sign Rx for lortab Others transmitted Final Diagnosis spontaneous labor acute blood loss anemia Consults/Follow Up Additional Follow Up: Yes (6 weeks ortiz) Activity Activity: Activity as Tolerated Driving Instructions: You May Drive NO SMOKING: NO SMOKING Nothing Inside Vagina: No Douching, No [place], No Tampons Diet Discharge Diet: No Restrictions Symptoms to Report to : Swelling Increased, Bleeding Excessive, Pain Increased, Fever Over 101 Degrees F, Vaginal Bleeding Increase, Vaginal Discharge Foul For Any Problems or Questions: Contact Your Physician JORGE LARSON DO Jul 29, 2017 07:41
[2017-07-29] MEDS: FERROUS SULF 325 MG (IRON) TAB PO SCH (08:10)
[2017-07-29] MEDS: DOCUSATE SODIUM 100 MG (COLACE) CAP PO SCH (08:12)
[2017-07-29] MEDS: IBUPROFEN 600 MG (MOTRIN) TAB PO SCH (08:12)
[2017-07-29 08:41] VITALS: BP 131/77
--- NOTE | 2017-07-29 09:00 | Progress Note-Standard ---
Standard Progress Note Progress Notes/Assess & Plan Date Seen by Provider: Jul 29, 2017 Time Seen by Provider: 08:30 Progress/Assessment & Plan Day # [2] Subjective: Patient is without complaints. Ambulating, voiding. Tolerating a regular diet without nausea or vomiting. Normal lochia. Pain is well controlled with oral pain medications. breast feeding. Objective: Vital Sign - Last 24 Hours 07/28/17 07/28/17 07/29/17 07/29/17 13:23 19:54 02:19 08:41 Temp 97.1 98.2 97.8 97.3 Pulse 85 105 90 98 Resp 16 16 16 18 B/P (MAP) 126/73 (90) 131/76 (94) 118/55 (76) 131/77 (95) Pulse Ox 98 98 97 8 O2 Delivery Room Air Room Air Room Air Room Air Physical Exam: General - Alert and oriented, no apparent distress Abdomen - Soft, appropriately tender to palpation, non-distended, fundus firm at umbilicus Extremities - no edema, negative Jason's bilaterally Assessment: 1. post- day # 2, status post spont vaginal delivery. Recovering well, hemodynamically stable Acute blood loss anemia Plan: Routine care. Encourage breast feeding. Encourage ambulation. Ferrous sulfate supplementation. Plan for discharge thursday ALLYN BORDEN DO Jul 29, 2017 8:59 am
== END 2017-07-29 10:00 | disposition home or self-care (01) | DRG 775 ==
LOC: LDRP 06:27 → WSo 06:27 → LDRP 06:34
PROVIDERS: ADMIT Obstetrics & Gynecology; ATTEND Obstetrics & Gynecology
PROC: 10E0XZZ Delivery of Products of Conception, External Approach (ICD-10-PCS; principal; 2017-07-27)
PROC: 0KQM0ZZ Repair Perineum Muscle, Open Approach (ICD-10-PCS; 2017-07-27)
DX: O69.1XX0 Labor and delivery complicated by cord around neck, with compression, not applicable or unspecified (principal); O99.03 Anemia complicating the puerperium; D62 Acute posthemorrhagic anemia; O70.1 Second degree perineal laceration during delivery; O26.893 Other specified pregnancy related conditions, third trimester; M41.9 Scoliosis, unspecified; O23.13 Infections of bladder in pregnancy, third trimester; Z3A.39 39 weeks gestation of pregnancy; Z37.0 Single live birth
CPT/HCPCS: 36415; 81000; 85025; 86850; 86900; 86901; 87088; 99212

== ENCOUNTER 2017-08-21 05:31 | Outpatient (CLI) | payer MEDICAID ==
[~2017-08-21] VITALS: Ht 156.2 cm; Wt 93.0 kg
[2017-08-21] MEDS ORDERED: PREN-102 PO (12:07)
== END 2017-08-21 12:15 ==
LOC: PREOP 05:31
PROVIDERS: ATTEND Surgery
DX: Z01.818 Encounter for other preprocedural examination (principal); K60.2 Anal fissure, unspecified

== ENCOUNTER 2017-08-28 07:59 | Day surgery (SDC) | payer MEDICAID ==
[~2017-08-28] VITALS: Ht 156.2 cm; Wt 93.0 kg
[~2017-08-28 07:59] MED LIST changes: +PREN-102 PO
[2017-08-28] MEDS ORDERED: SCOPOLAMINE 1.5 MG (TRANSDERM-SCOP) PATCH TOP ONE (08:30)
[2017-08-28] MEDS ORDERED: ONDANSETRON 4 MG/2 ML (SDV) Z0FRAN IV ONE (08:30)
[2017-08-28] MEDS ORDERED: PANTOPRAZOLE 40 MG/10 ML (PROTONIX) VIAL IV ONE (08:30)
[2017-08-28] MEDS ORDERED: LACTATED RINGERS 1,000 ML IV PRN (08:40)
[2017-08-28 08:44] VITALS: BP 97/53
[2017-08-28] MEDS ORDERED: ceFAZolin 2 GM IV Premixed 50 ML IV ONE (08:45)
[2017-08-28] MEDS ORDERED: metroNIDAZOLE 500MG/100ML IVPB 100 ML IV ONE (08:45)
[2017-08-28] MEDS ORDERED: LIDOCAINE/EPI 1%-1:200,000 (XYLOCAINE) 10 ML VIAL ONE (09:09)
--- NOTE | 2017-08-28 09:52 | Progress Note-Pre Operative ---
Pre-Operative Progress Note H&P Reviewed The H&P was reviewed, patient examined and no changes noted. Date Seen by Provider: Aug 19, 2017 Time Seen by Provider: 10:20 Date H&P Reviewed: Aug 28, 2017 Time H&P Reviewed: 09:52 Pre-Operative Diagnosis: Anal fistula JESSIE BUSBY MD Aug 28, 2017 9:52 am
[2017-08-28] MEDS ORDERED: SEVOFLURANE (ULTANE) 15 ML INHAL SOLN ONE ×4 (10:09→10:45)
[2017-08-28] MEDS ORDERED: DEXAMETHASONE 10 MG/ML (DECADRON) 1 ML VIAL ONE (10:09)
[2017-08-28] MEDS ORDERED: proPOfol 200 MG/20 ML (DIPRIVAN) VIAL IV ONE (10:09)
[2017-08-28] MEDS ORDERED: ONDANSETRON 4 MG/2 ML (SDV) Z0FRAN ONE (10:09)
[2017-08-28] MEDS ORDERED: MIDAZOLAM 2 MG/2 ML (VERSED) VIAL ONE (10:09)
[2017-08-28] MEDS ORDERED: LIDOCAINE PF 2% 5 ML (XYLOCAINE) VIAL ONE (10:09)
[2017-08-28] MEDS ORDERED: fentaNYL INJECTION 100 MCG/2 ML AMP ONE (10:19)
[2017-08-28] MEDS ORDERED: ROCURONIUM 50 MG/5 ML (ZEMURON) VIAL IV ONE (10:45)
--- NOTE | 2017-08-28 10:55 | Operative Report ---
Operative Report Date of Procedure/Surgery Aug 28, 2017 Surgeon (s) JESSIE BUSBY MD Engine Manager (s): n/a Post-Operative Diagnosis Superficial anal fistula Procedure Performed Examination under anesthetic Excision of superficial anal fistula Description of Procedure Anesthesia Type: General Estimated blood loss (mL): Minimal Specimen(s) collected/removed Anal fistula Description of the Procedure Indication for procedure: This lady had undergone incision and drainage of ischiorectal abscess more than a year. She presented with what appeared to be an anal fistula. She was offered an examination under anesthetic as a view to identifying the deeper aspect of the fistula, with reference to the sphincter and completing the appropriate management. Should be tracked be trans- sphincteric with extension into the rectum, the possibility of leaving a seton suture was discussed. Informed consent was obtained after reviewing all these details and highlighting the natural history of further recurrence associated with the condition. Description of the procedure: She underwent mechanical bowel preparation including oral antibiotics the day before surgery. She was initially placed supine on the operative table and general anesthesia induced. 2 g of Ancef was administered intravenously, along with 500 mg of Flagyl, as prophylaxis against wound infection. She was then placed in combined lithotomy position, her legs being supported on stirrups. Examination confirmed a fistulous opening at about 8 o'clock position, about 3 cm from the anal margin. The tract was gently probed and no definitive opening into the rectum could be identified. Subsequently, I injected hydrogen peroxide into the tract and visualized the rectum using a split anal speculum. I could not identify any rectal opening. Therefore, the fistulous tract was excised without damaging the sphincter, being guided by the probe. The tract measured about 3 cm in length. It was sent for histological examination. Hemostasis was achieved using cautery. One percent lidocaine with epinephrine was infiltrated along the incision and then of the operation A [place] drain was then left in the cavity to facilitate postoperative drainage. It was secured using 3-0 silk suture. She tolerated the procedure well, was extubated in the operating room and taken to the recovery room in a stable condition. Findings of the Procedure see op report Allergies and Home Medications Allergies Coded Allergies: iodine (Verified Allergy, Intermediate, RASH, 08/21/17) Home Medications Docusate Sodium 100 Mg Capsule, 100 MG PO BID, #60 Prescribed by: JORGE LARSON on 07/29/17 0740 Ferrous Sulfate 325 Mg Tablet, 325 MG PO DAILY, #60 Prescribed by: JORGE LARSON on 07/29/17 0740 Ibuprofen 600 Mg Tablet, 600 MG PO Q6H, #60 Prescribed by: JORGE LARSON on 07/29/17 0740 Vits #93/Iron Fum/FA 1 Each Tablet, 1 EACH PO DAILY, (Reported) JESSIE BUSBY MD Aug 28, 2017 10:55 am
[2017-08-28] MEDS ORDERED: ACHD5005 PO (10:56)
[2017-08-28] MEDS ORDERED: METR500T PO (10:57)
--- NOTE | 2017-08-28 10:58 | Discharge Inst-Simple/Standard ---
Discharge Inst-Standard Discharge Medications New, Converted or Re-Newed RX: RX on Chart Patient Instructions/Follow Up Plan of Care/Instructions/FU: ABD pad as needed. Follow-up in 3 weeks. Has a Macy drain in place Activity as Tolerated: Yes Discharge Diet: No Restrictions JESSIE BUSBY MD Aug 28, 2017 10:58 am
[2017-08-28] MEDS ORDERED: morphine INJ 10 MG/ML 1ML (SYR OR VIAL) IVP PRN (11:15)
[2017-08-28] MEDS ORDERED: HYDROmorphone (DILAUDID) 2 MG/ML VIAL IVP PRN (11:15)
[2017-08-28] MEDS ORDERED: ONDANSETRON 4 MG/2 ML (SDV) Z0FRAN IVP PRN (11:15)
[2017-08-28] MEDS ORDERED: PROMETHAZINE INJ 25 MG/ML (PHENERGAN) AMP IVP PRN (11:45)
[2017-08-28 12:00] VITALS: BP 111/67
[2017-08-28 12:30] VITALS: BP 106/64
[2017-08-28 13:30] VITALS: BP 109/71
[2017-08-28 13:36] VITALS: BP 106/64
== END 2017-08-28 13:30 | disposition home or self-care (01) ==
LOC: SDC 07:59
PROVIDERS: ATTEND Surgery
DX: K60.3 Anal fistula (principal); G57.93 Unspecified mononeuropathy of bilateral lower limbs; E66.9 Obesity, unspecified; Z68.38 Body mass index [BMI] 38.0-38.9, adult
CPT/HCPCS: 84703; 87081

== ENCOUNTER → 2018-08-05 | Outpatient (CLI) | payer BC, OTHER ==
[~2018-08-05] MED LIST changes: +GADOBUTROL 10 MMOL/10 ML (GADAVIST) VIAL IV ONE; +METR500T PO; -OXYC-197 PO; +OXYC1TAB87 PO; -PROC10TA PO; +PROC10TA10 PO
--- NOTE | 2018-08-05 17:38 | Diagnostic Imaging Report ---
PROCEDURE: MRI pelvis with and without contrast. TECHNIQUE: Multiplanar, multisequence MRI of the pelvis was performed with and without contrast. INDICATION: History of rectal surgery. Rectal pain. Concern for rectal fistula. COMPARISON: CT abdomen and pelvis with IV contrast 09/18/2016. FINDINGS: The visualized portions of the sigmoid colon and rectum are decompressed. There is no discrete mass identified. There is a fistula originating from the posterior midline rectum extending posteriorly and towards the right and exiting in the gluteal fold. This is best seen on sagittal sequence series 8, images 17-21 and coronal sequence 14, images 9-20. The uterus, bladder, and vaginal canal are grossly unremarkable. Normal bone marrow signal in the [id number]. IMPRESSION: Perirectal fistula extending from the posterior midline rectum to the right gluteal fold. Granulating Blender images listed above. Dictated by: Dictated on workstation # [id number]
== END ==
LOC: RAD 14:47
PROVIDERS: ATTEND Surgery
DX: K60.5 Anorectal fistula (principal); Z98.890 Other specified postprocedural states
CPT/HCPCS: 72197

== ENCOUNTER 2022-02-13 05:31 | Outpatient (CLI) | payer BC, OTHER ==
[~2022-02-13] VITALS: Ht 156 cm; Wt 95.9 kg
[~2022-02-13 05:31] MED LIST changes: -GADOBUTROL 10 MMOL/10 ML (GADAVIST) VIAL IV ONE; -HYDR-3454 PO; +HYDR-3455 PO; -OMEP40CA36 PO; +OMEP40CA6 PO
== END 2022-02-13 11:09 ==
LOC: PREOP 05:31
PROVIDERS: ATTEND Obstetrics & Gynecology
DX: Z01.818 Encounter for other preprocedural examination (principal)

== ENCOUNTER 2022-02-20 08:19 | Day surgery (SDC) | payer OTHER ==
[2022-02-20] VITALS (16 sets, daily range): BP systolic 92–140; BP diastolic 45–88
[~2022-02-20] VITALS: Ht 156 cm; Wt 95.9 kg
[2022-02-20] MEDS ORDERED: LACTATED RINGERS 1,000 ML IV PRN (08:30)
[2022-02-20 08:39] LABS: BILIRUBIN,URINE NEGATIVE (NEGATIVE); CLARITY,URINE CLEAR; COLOR,URINE YELLOW; GLUCOSE, URINE (UA) NEGATIVE (NEGATIVE); KETONES,URINE NEGATIVE (NEGATIVE); LEUKOCYTE ESTERASE ,URINE NEGATIVE (NEGATIVE); NITRITE,URINE NEGATIVE (NEGATIVE); PH,URINE 5.5 (5-9); PROTEIN,URINE NEGATIVE (NEGATIVE)
[2022-02-20] MEDS ORDERED: ONDANSETRON 4 MG/2 ML (SDV) Z0FRAN IV ONE (09:00)
[2022-02-20] MEDS ORDERED: SCOPOLAMINE 1.5 MG (TRANSDERM-SCOP) PATCH TOP ONE (09:00)
[2022-02-20] MEDS ORDERED: PANTOPRAZOLE 40 MG (PROTONIX) VIAL IV ONE (09:00)
[2022-02-20 09:06] LABS: BACTERIA,URINE TRACE /HPF
[2022-02-20] MEDS ORDERED: METHYLENE BLUE 0.5% (PROVAYBLUE) 50 mg/10 ml vial IV ONE (09:54)
--- NOTE | 2022-02-20 10:13 | Progress Note-Pre Operative ---
Pre-Operative Progress Note Date of Available H&P: Feb 03, 2022 Date H&P Reviewed: Feb 20, 2022 Time H&P Reviewed: 10:05 History & Physical: H&P Reviewed, Patient Examed, No changes noted Pre-Operative Diagnosis: dysparuenia, dysmenorrhea, history of endometriosis DRISS VILLAFANA MD Feb 20, 2022 10:13
[2022-02-20] MEDS ORDERED: D5 LR IV SOLUTION 1,000 ML IV SCH (10:15)
[2022-02-20] MEDS ORDERED: ONDANSETRON 4 MG/2 ML (SDV) Z0FRAN IVP PRN (10:15)
[2022-02-20] MEDS ORDERED: KETOROLAC 30 MG/ML VIAL IVP ONE (10:15)
[2022-02-20] MEDS ORDERED: OXYC5CAP18 PO (10:16)
--- NOTE | 2022-02-20 11:24 | Anesthesia-General Post-Op ---
General Patient Condition Mental Status/LOC: Same as Preop Cardiovascular: Satisfactory Nausea/Vomiting: Absent Respiratory: Satisfactory Pain: Controlled Complications: Absent Post Op Complications Complications None Follow Up Care/Instructions Patient Instructions None needed. Anesthesia/Patient Condition Patient Condition Patient is doing well, no complaints, stable vital signs, no apparent adverse anesthesia problems. No complications reported per nursing. ERASTO SMART CRNA Feb 20, 2022 11:24
[2022-02-20] MEDS ORDERED: morphine INJ 10 MG/ML 1ML (SYR OR VIAL) ONE (11:27)
[2022-02-20] MEDS ORDERED: MEPERIDINE (DEMEROL) INJ 50 MG/ML IVP ONE (11:30)
[2022-02-20] MEDS ORDERED: HYDROmorphone 2 MG/ML VIAL (DILAUDID) IV ONE (11:30)
[2022-02-20] MEDS ORDERED: PROMETHAZINE INJ 25 MG/ML (PHENERGAN) AMP IVP ONE (11:30)
[2022-02-20] MEDS ORDERED: morphine INJ 10 MG/ML 1ML (SYR OR VIAL) IVP ONE (11:30)
[2022-02-20] MEDS ORDERED: fentaNYL INJ 100 MCG/2 ML AMP IVP ONE (11:30)
[2022-02-20] MEDS: ONDANSETRON 4 MG/2 ML (SDV) Z0FRAN IVP PRN ×2 (11:53→12:15)
[2022-02-20] MEDS ORDERED: PROMETHAZINE INJ 25 MG/ML (PHENERGAN) AMP ONE (11:58)
--- NOTE | 2022-02-20 16:24 | OPERATIVE REPORT ---
DATE OF SERVICE: 02/20/2022 PREOPERATIVE DIAGNOSES: Dyspareunia with dysmenorrhea, history of endometriosis and secondary infertility. POSTOPERATIVE DIAGNOSES: Dyspareunia with dysmenorrhea, history of endometriosis and secondary infertility. PROCEDURE: Diagnostic laparoscopy with fulguration of endometriosis and chromotubation. SURGEON: Dr. Byers. ANESTHESIA: General. ESTIMATED BLOOD LOSS: Minimal. COMPLICATIONS: None. CONDITION: Stable. FINDINGS: Normal appearing uterus, tubes and ovaries and cervix. Endometriotic lesions were noted along her left uterosacral ligament, left pelvic sidewall, both superiorly and inferiorly to the adnexal structures as well as one lesion on the anterior lower abdominal wall and one inferior to her right ovary along the pelvic sidewall. DESCRIPTION OF PROCEDURE: After the risks, benefits and alternatives of the procedure were described to the patient, she was taken to the operating room where general anesthesia was obtained without difficulty. She was placed in dorsal lithotomy position with [place] catheter and SCDs in place and prepped and draped in the usual sterile fashion. A weighted speculum was placed in the patient's vagina and the anterior lip of the cervix was grasped with a tenaculum and the cervix was dilated to accommodate a HUMI manipulator, which was assembled in the usual sterile fashion and all other instruments were removed from the patient's vagina and attention was turned to the abdominal portion of the procedure. A 5 mm skin incision was made in the umbilical fold and a Veress needle was advanced while tenting the abdominal wall upwards. Pneumoperitoneum was achieved and the Veress needle was removed, and 5 mm trocar and sleeve were advanced under direct visualization without difficulty. The pelvis was surveyed with the above findings including a smooth liver edge. She was placed in Trendelenburg and a 5 mm skin incision was made in the left quadrant, and trocar and sleeve were advanced under direct visualization without difficulty. The pelvis was surveyed with the above findings. The endometriotic lesions were fulgurated with bipolar Kleppinger cautery. No lesions were appreciated to lie over bowel or ureter. Chromotubation was performed by injecting diluted methylene blue through the HUMI manipulator and had rapid spill bilaterally demonstrating tubal patency. All instruments were removed from the patient's abdomen and skin incisions were closed with subcuticular 4-0 Monocryl stitch and Dermabond. The manipulator was removed from the patient's vagina and hemostasis was assured. The patient tolerated the procedure well. Sponge, lap, needle, instrument counts were correct, and she was taken to the recovery room awake and in stable condition. Job ID: [id number] DocumentID: [id number] Dictated Date: 02/20/2022 12:27:28 Special Ed Assistant Date: 02/20/2022 13:04:11 Dictated By: Litzy Byers MD
== END 2022-02-20 13:45 ==
LOC: SDC 08:19
PROVIDERS: ATTEND Obstetrics & Gynecology
DX: N94.10 Unspecified dyspareunia (principal); N94.6 Dysmenorrhea, unspecified; N97.9 Female infertility, unspecified; E66.9 Obesity, unspecified
CPT/HCPCS: 81000; 84703; 86850; 86900; 86901; 87081